=== PATIENT | male | born 1945 | race Caucasian/White ===

== ENCOUNTER 2019-08-17 10:10 | Emergency (ER) | payer OTHER, SELFPAY ==
--- NOTE | 2019-08-17 10:18 | ED.URI ---
HPI - URI/Sore Throat General Chief Complaint: Upper Respiratory Infection Stated Complaint: COUGH Time Seen by Provider: 08/17/19 10:50 Source: patient and RN notes reviewed Mode of arrival: ambulatory Limitations: no limitations History of Present Illness HPI Narrative: 73-year-old male presents with concern for 1 week history of cough, worsening cough and shortness of breath upon exertion. Reports general malaise, denies fever, chills, sweats. Denies chest pain, diaphoresis. Denies taking any [id number] medications for his symptoms. MD elicited complaint: cough Related Data Home Medications Medication Instructions Recorded Confirmed lisinopril-hydrochlorothiazide 1 tablet PO DAILY 08/17/19 08/17/19 Allergies Allergy/AdvReac Type Severity Reaction Status Date / Time No Known Allergies Allergy Verified 08/17/19 10:33 Review of Systems Review of Systems: Narrative: CONSTITUTIONAL: Reports malaise. Denies chills, sweats, or fever. EYES: Denies visual changes, redness, or discharge. ENT: Reports rhinorrhea. Denies congestion, sinus pain, otalgia and sore throat. CARDIOVASCULAR: Denies chest pain, palpitations, or edema. RESPIRATORY: Reports cough and occasional dyspnea with coughing fits. GASTROINTESTINAL: Denies abdominal pain, nausea, vomiting, diarrhea SKIN: Denies rash or itching. MUSCULOSKELETAL: Denies myalgia. NEUROLOGIC: Reports occasional headache. All systems reviewed & are unremarkable except as noted in HPI and below PMFSH Family History Family History (Updated 01/09/16 @ 23:21 by DOCTOR UNKNOWN) Mother Patient's mother is in good health Father Family history of malignant neoplasm Patient's father is Social History Social History Alcohol intake: never Comments At time of signature, agree with nursing past medical, surgical, social and family history. There is no relevant family history pertinent to the presenting complaint Exam Narrative: Exam Narrative: GENERAL: Well-appearing, well-nourished, and in no acute distress. HEAD: Normocephalic EYES: PERRLA, conjunctivae clear ENT: Nares clear, turbinates erythematous, clear discharge. Mucous membranes moist. TM pearly albright with dull light reflex bilaterally; no tragal tenderness. Oropharynx not erythematous without lesions. Tonsils not enlarged and without exudate, no drooling, no hoarseness, no trismus, uvula midline. NECK: Supple. No lymphadenopathy CHEST: Clear to auscultation, breath sounds equal. No wheezing, rhonchi, rales, or stridor. No respiratory distress, speaks in full sentences. Cough noted HEART: Regular rate and rhythm. No murmur heard. SKIN: Warm, dry, no rash. NEURO: Alert and oriented x3. PSYCH: Normal mood and affect Course Course Emergency Course: Patient is aware of diagnosis, understands and agrees to treatment plan. Anticipatory guidance given. Patient agrees to follow-up as directed and is aware of reasons to seek care at the emergency department. Portions of this record may have been created with voice recognition software Vital Signs Vital signs: Vital Signs Temperature 97.8 F 08/17/19 10:25 Pulse Rate 74 08/17/19 10:25 Respiratory Rate 20 08/17/19 10:25 Blood Pressure 146/78 H 08/17/19 10:25 Pulse Oximetry 98 08/17/19 10:25 Temperature 97.8 F 08/17/19 10:25 Pulse Rate 74 08/17/19 10:25 Respiratory Rate 20 08/17/19 10:25 Blood Pressure 146/78 H 08/17/19 10:25 Pulse Oximetry 98 08/17/19 10:25 Reviewed. Patient has current diagnosis of hypertension MDM - URI/Sore Throat MDM Narrative Medical decision making narrative: Differential diagnosis considered: Strep pharyngitis, allergic rhinitis, upper respiratory tract infection, sinusitis, rhinosinusitis, nasopharyngitis. viral pharyngitis, otitis media, otitis externa, pneumonia, bronchitis, viral cough syndrome, viral syndrome, and influenza. Exam findings show no acute concerns or changes; patie
[2019-08-17 10:25] VITALS: BP 146/78; PULSE 74; RESP 20; TEMP 36.6; O2SAT 98
== END 2019-08-17 11:12 | disposition home or self-care (01) ==
PROVIDERS: Emergency Provider Nurse Practitioner; PCP Internal Medicine
DX: R05 Cough (principal); I10 Essential (primary) hypertension; Z96.653 Presence of artificial knee joint, bilateral
CPT/HCPCS: 99213; G0463

== ENCOUNTER 2020-01-22 07:30 | Outpatient (CLI) | payer OTHER, SELFPAY ==
[2020-01-22 07:56] LABS: Hemoglobin A1C 5.4 % (<5.7)
[2020-01-22 07:59] LABS: Anion Gap 7 mmol/L (8-16); Blood Urea Nitrogen 18 mg/dL (9-20); Calcium 8.8 mg/dL (8.4-10.2); Carbon Dioxide 27 mmol/L (22-30); Chloride 102 mmol/L (98-107); Cholesterol 170 mg/dL (0-200); Estimated Glomerular Filt Rate > 60; Glucose 112 mg/dL (75-110); HDL Direct 53 mg/dL; Potassium 4.1 mmol/L (3.4-5.0); Sodium 136 mmol/L (137-145); Triglycerides 103 mg/dL (<150)
[2020-01-22 08:10] LABS: LDL Cholesterol Direct 99 mg/dL
[2020-01-22 08:29] LABS: Prostate Specific Antigen 1.8 ng/mL (< OR = 4.0)
== END 2020-01-22 07:31 | disposition home or self-care (01) ==
PROVIDERS: PCP Internal Medicine; Visit Provider Internal Medicine
DX: R73.03 Prediabetes (principal); Z12.5 Encounter for screening for malignant neoplasm of prostate; E78.5 Hyperlipidemia, unspecified; I10 Essential (primary) hypertension
CPT/HCPCS: 36415; 80048; 80061; 83036; 84153; G0103

== ENCOUNTER 2021-01-21 07:13 | Outpatient (CLI) | payer OTHER, SELFPAY ==
[2021-01-21 09:19] LABS: Anion Gap 7 mmol/L (8-16); Blood Urea Nitrogen 16 mg/dL (9-20); Calcium 9.1 mg/dL (8.4-10.2); Carbon Dioxide 26 mmol/L (22-30); Chloride 106 mmol/L (98-107); Cholesterol 189 mg/dL (0-200); Estimated Glomerular Filt Rate > 60; Glucose 118 mg/dL (65-110); HDL Direct 47 mg/dL; Sodium 139 mmol/L (137-145); Triglycerides 97 mg/dL (<150)
[2021-01-21 09:21] LABS: Hemoglobin A1C 5.9 % (<5.7)
[2021-01-21 09:32] LABS: LDL Cholesterol Direct 103 mg/dL
[2021-01-21 09:52] LABS: Prostate Specific Antigen 1.6 ng/mL (< OR = 4.0)
== END 2021-01-21 07:14 | disposition home or self-care (01) ==
PROVIDERS: PCP Internal Medicine; Visit Provider Internal Medicine
DX: E78.5 Hyperlipidemia, unspecified (principal); I10 Essential (primary) hypertension; R73.03 Prediabetes; Z12.5 Encounter for screening for malignant neoplasm of prostate
CPT/HCPCS: 36415; 80048; 80061; 83036; 84153; G0103

== ENCOUNTER 2022-01-21 08:44 | Outpatient (CLI) | payer OTHER, SELFPAY ==
[2022-01-21 10:23] LABS: Alanine Aminotransferase 22 U/L (6-50); Albumin Level 4.4 g/dL (3.5-5.1); Alkaline Phosphatase 62 U/L (38-126); Anion Gap 11 mmol/L (8-16); Aspartate Amino Transferase 24 U/L (17-59); Bilirubin,Total 0.5 mg/dL (0.2-1.3); Blood Urea Nitrogen 19 mg/dL (9-20); Calcium 9.1 mg/dL (8.4-10.2); Carbon Dioxide 26 mmol/L (22-30); Chloride 99 mmol/L (98-107); Cholesterol 181 mg/dL (0-200); Estimated Glomerular Filt Rate > 60; Glucose 114 mg/dL (65-110); HDL Direct 52 mg/dL; Potassium 4.3 mmol/L (3.4-5.0); Sodium 136 mmol/L (137-145); Triglycerides 120 mg/dL (<150)
[2022-01-21 10:34] LABS: LDL Cholesterol Direct 102 mg/dL
[2022-01-21 10:49] LABS: Prostate Specific Antigen 1.5 ng/mL (< OR = 4.0)
[2022-01-21 11:02] LABS: Hemoglobin A1C 6.1 % (<5.7)
== END 2022-01-21 08:45 | disposition home or self-care (01) ==
PROVIDERS: PCP Internal Medicine; Visit Provider Internal Medicine
DX: R73.03 Prediabetes (principal); I10 Essential (primary) hypertension; Z12.5 Encounter for screening for malignant neoplasm of prostate; E78.5 Hyperlipidemia, unspecified
CPT/HCPCS: 36415; 80053; 80061; 83036; 84153; G0103

== ENCOUNTER 2022-10-25 07:30 | Outpatient (CLI) | payer OTHER, SELFPAY ==
--- NOTE | ~2022-10-25 | US_ITS ---
EXAMINATION: US aorta DATE: 10/25/2022 08:01 INDICATION: Personal history of nicotine dependence. TECHNIQUE: Grayscale, color Doppler, and pulsed Doppler images of the aorta and common iliac arteries were obtained. COMPARISON: None. FINDINGS: The aorta demonstrates a fusiform suprarenal aneurysm measuring 3.1 cm. The right common iliac artery measures 1.5 cm. The left common iliac artery measures 1.6 cm. There is diffuse hepatic steatosis. IMPRESSION: 1. 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 2. Diffuse hepatic steatosis. Reviewed, dictated and finalized at location A.
== END 2022-10-25 07:31 | disposition home or self-care (01) ==
PROVIDERS: PCP Family Medicine; Visit Provider Family Medicine
DX: Z87.891 Personal history of nicotine dependence (principal); K76.0 Fatty (change of) liver, not elsewhere classified; I71.43 Infrarenal abdominal aortic aneurysm, without rupture
CPT/HCPCS: 76775

== ENCOUNTER 2022-12-13 09:17 | Emergency (ER) | payer OTHER, SELFPAY ==
[2022-12-13 09:23] VITALS: BP 133/73; PULSE 85; RESP 16; TEMP 36.7; O2SAT 98
--- NOTE | 2022-12-13 09:26 | ED.GENADULT ---
HPI - General Adult General Chief complaint: Upper Respiratory Infection Stated complaint: COUGH/SORE THROAT/HEADACHE/EYE REDNESS Time Seen by Provider: 12/13/22 09:39 Source: patient and RN notes reviewed Mode of arrival: ambulatory Limitations: no limitations History of Present Illness HPI narrative: 77-year-old male presents with concern for right eye redness, discharge, swelling, purulent drainage. Reports overnight it was crusted shut. Reports the symptoms started yesterday. Reports for the last 4-5 days he has had cough, nasal congestion, sinus pressure, ear pain. He denies known sick contacts. He has not taken any medications for his symptoms. MD complaint: Cough Related Data Home Medications Medication Instructions Recorded Confirmed docusate sodium 100 mg capsule 100 mg PO DAILY 02/05/22 02/05/22 (Dulcolax Stool Softener (docusate)) omega-3 fatty acids-fish oil 340 1 cap PO DAILY 02/05/22 02/05/22 mg-1,000 mg capsule (Fish Oil) omeprazole 20 mg capsule,delayed 20 mg PO DAILY 02/05/22 02/05/22 release sertraline 50 mg tablet 50 mg PO DAILY 02/05/22 02/05/22 metformin 500 mg tablet 500 mg PO DAILY 10/12/22 Allergies Allergy/AdvReac Type Severity Reaction Status Date / Time No Known Allergies Allergy Verified 10/12/22 08:49 Review of Systems Review of Systems: CONSTITUTIONAL: Denies malaise, chills, sweats, or fever. EYES: Denies visual changes, redness, or discharge. ENT: Reports rhinorrhea, congestion, sinus pain, otalgia CARDIOVASCULAR: Denies chest pain, palpitations, or edema. RESPIRATORY: Reports cough. Denies dyspnea. GASTROINTESTINAL: Denies abdominal pain, nausea, vomiting, diarrhea SKIN: Denies rash or itching. MUSCULOSKELETAL: Denies myalgia. NEUROLOGIC: Denies headache. All systems reviewed & are unremarkable except as noted in HPI and below PMFSH Past Medical History Medical History Bone spur of right foot PTSD (post-traumatic stress disorder) Family History Family History Mother Patient's mother is in good health Father Family history of malignant neoplasm Patient's father is Social History Social History (Reviewed 10/12/22 @ 08:47 by Jeimy Maddox [facility]) Smoking status: Never smoker Alcohol intake: never Comments At time of signature, agree with nursing past medical, surgical, social and family history. There is no relevant family history pertinent to the presenting complaint Exam Narrative: GENERAL: Nontoxic and in no acute distress. HEAD: Normocephalic EYES: PERRLA. Right conjunctiva and sclera injected, mild upper and lower lid edema, yellow drainage noted. ENT: Nares clear, turbinates edematous and erythematous. Mucous membranes moist. Right tM pearly albright with dull light reflex, left TM erythematous and bulging; no tragal tenderness. Oropharynx not erythematous without lesions. Tonsils not enlarged and without exudate, no drooling, no hoarseness, no trismus, uvula midline. NECK: Supple. No lymphadenopathy CHEST: Clear to auscultation, breath sounds equal. No wheezing, rhonchi, rales, or stridor. No respiratory distress, speaks in full sentences. Cough noted HEART: Regular rate and rhythm. No murmur heard. SKIN: Warm, dry, no rash. NEURO: Alert and oriented x3. PSYCH: Normal mood and affect Course Course Emergency Course: Patient is aware of diagnosis, understands and agrees to treatment plan. Anticipatory guidance given. Patient agrees to follow-up as directed and is aware of reasons to seek care at the emergency department. Portions of this record may have been created with voice recognition software Level of Care: Express Care Visit Vital Signs Vital signs: Vital Signs Temperature 98.1 F 12/13/22 09:23 Pulse Rate 85 12/13/22 09:23 Respiratory Rate 16 12/13/22 09:23 Blood Pressure 133/73
== END 2022-12-13 09:53 | disposition home or self-care (01) ==
PROVIDERS: Emergency Provider Nurse Practitioner; PCP Family Medicine
DX: R05.9 Cough, unspecified (principal); H66.002 Acute suppurative otitis media without spontaneous rupture of ear drum, left ear; H10.31 Unspecified acute conjunctivitis, right eye; F43.10 Post-traumatic stress disorder, unspecified
CPT/HCPCS: 99213; G0463

== ENCOUNTER 2023-01-07 07:21 | Outpatient (CLI) | payer OTHER, SELFPAY ==
--- NOTE | ~2023-01-07 | XR_ITS ---
Clinical Indication: Cough PA and lateral views of the chest: Comparison: 11/01/2013 Findings: The lungs are clear, without evidence of focal consolidation or pleural effusion. Cardiome diastinal silhouette is within normal limits. Bones and soft tissues are unremarkable. Impression: Normal chest. Reviewed, dictated and finalized at location . Impression: Normal chest.
== END 2023-01-07 07:22 | disposition home or self-care (01) ==
PROVIDERS: PCP Family Medicine; Visit Provider Nurse Practitioner Family
DX: R05.9 Cough, unspecified (principal)
CPT/HCPCS: 71046

== ENCOUNTER 2023-09-09 09:12 | Emergency (ER) | payer MEDICARE, SELFPAY ==
--- NOTE | 2023-09-09 09:17 | ED.URI ---
HPI - URI/Sore Throat General Chief Complaint: Upper Respiratory Infection Stated Complaint: sore throat,runny nose,PAGAN,cough Time Seen by Provider: 09/09/23 09:16 Source: patient, RN notes reviewed and old records reviewed Mode of arrival: ambulatory Limitations: no limitations History of Present Illness HPI Narrative: 77-year-old male to Express Care with complaint of runny nose, cough, sore throat, headache for 3 days. Patient has treated at home with Coricidin and Advil with some relief. Patient denies fever, chest pain, shortness of breath. Patient able to tolerate fluids by mouth. Related Data Home Medications Medication Instructions Recorded Confirmed omeprazole 20 mg capsule,delayed 20 mg PO DAILY 02/05/22 09/09/23 release sertraline 50 mg tablet 50 mg PO DAILY 02/05/22 09/09/23 metformin 500 mg tablet 500 mg PO DAILY 10/12/22 09/09/23 Allergies Allergy/AdvReac Type Severity Reaction Status Date / Time No Known Allergies Allergy Verified 09/09/23 09:27 Review of Systems Review of Systems: All systems reviewed & are unremarkable except as noted in HPI and below Constitutional: Constitutional: Reports as per HPI, Denies fever(s) and Reports headache(s) Eyes: Eyes: Reports no additional eye complaints ENT: Reports as per HPI, Reports nasal discharge (clear per pt) and Reports sore throat Cardiovascular: Cardiovascular: Reports as per HPI, Denies chest pain and Denies dyspnea Respiratory: Respiratory: Reports as per HPI, Reports cough and Denies dyspnea Musculoskeletal: Musculoskeletal: Reports no additional musculoskeletal complaints Neurologic: Reports system reviewed and no additional complaints, except as documented Psychiatric: Psychiatric: Reports no additional psychiatric complaints [facility] Past Medical History Medical History Bone spur of right foot PTSD (post-traumatic stress disorder) Family History Family History Mother Patient's mother is in good health Father Family history of malignant neoplasm Patient's father is Social History Social History Smoking status: Never smoker Alcohol intake: never Lack of Transportation: No Lack of Food: Never True Current Housing: I Have Housing Concerned About Future Housing: No Difficulty Paying Gas/Electric Bills: No Difficulty Paying for Meds: No Currently Unemployed: No Education: Master's Degree or Higher Difficulty w/ Childcare or Family Care: No Comments At the time of my signature, I reviewed and agree with the nursing past medical, surgical, social, and family history. There is no relevant family history pertinent to the patient complaint. Exam Const: General: cooperative, comfortable, no acute distress, alert, tired appearing and well nourished Nutritional Appearance: well nourished Orientation/consciousness: patient oriented x3 Limitations: no limitations HENMT: Head: normal to inspection Ears: external ears normal, TM abnormal with fluid behind the TM on the left and obstructed by cerumen on the right and unable to visualize TM on the right Face/Nose/Sinus: Normal external nose present, Normal nares present, normal facial exam, No erythema and No edema Face and sinus: normal facial exam, no erythema and no edema Mouth: Yes Normal oral and palatal mucosa present Throat: posterior oropharynx abnormal erythema and postnasal drainage Eyes: General: appearance normal, both eyes and all related structures Neck: Neck: normal visual inspection, full ROM and no meningeal signs Lymphatic: no lymphadenopathy noted and no lymphedema noted Chest: Chest palpation & inspection: normal inspection of the chest Resp: Effort & Inspection: normal respiratory effort and able to speak in complete sentences Auscultation:
[2023-09-09 09:33] VITALS: BP 148/74; PULSE 90; RESP 16; TEMP 36.4; O2SAT 98
== END 2023-09-09 10:10 | disposition home or self-care (01) ==
PROVIDERS: Emergency Provider Nurse Practitioner Family; PCP Family Medicine
DX: H66.92 Otitis media, unspecified, left ear (principal); H61.23 Impacted cerumen, bilateral; Z20.822 Contact with and (suspected) exposure to COVID-19
CPT/HCPCS: 69210; 87426; 87804; 99213; G0463

== ENCOUNTER 2023-09-20 08:13 | Emergency (ER) | payer MEDICARE, SELFPAY ==
[2023-09-20 08:21] VITALS: BP 110/94; PULSE 67; RESP 16; TEMP 36.5; O2SAT 98
--- NOTE | 2023-09-20 08:24 | ED.URI ---
HPI - URI/Sore Throat General Chief Complaint: Upper Respiratory Infection Stated Complaint: Cough Time Seen by Provider: 09/20/23 08:24 Source: patient, RN notes reviewed and old records reviewed Mode of arrival: ambulatory Limitations: no limitations History of Present Illness HPI Narrative: 77 year old male presents to [facility] care with complaints of cough which continues to linger after completion of Amoxicillin which he received on 09/09/2023 for ear infection. Patient reports that he has been taking Robitussin for his cough.Patient reports no fevers, chills or sweats or any body aches, admits to some nasal drainage. Patient reports no noted wheezing, states some shortness of breath with exertion with no tachypnea or retractions noted SAO2 98% on room air. MD elicited complaint: cough Pertinent past history: other (ear infection with antibiotics on 09/09/2023) Onset (ago): week(s) (1.5 weeks cough) Pain scale (0-10): 2 Description of mucous: clear Able to tolerate fluids by mouth: Yes Treatments prior to arrival: antibiotics (completed) and other (Robitussin) Related Data Home Medications Medication Instructions Recorded Confirmed omeprazole 20 mg capsule,delayed 20 mg PO DAILY 02/05/22 09/09/23 release sertraline 50 mg tablet 50 mg PO DAILY 02/05/22 09/09/23 metformin 500 mg tablet 500 mg PO DAILY 10/12/22 09/09/23 Allergies Allergy/AdvReac Type Severity Reaction Status Date / Time No Known Allergies Allergy Verified 09/20/23 08:28 Review of Systems Review of Systems: CONSTITUTIONAL: Denies malaise, chills, sweats, or fever. EYES: Denies visual changes, redness, or discharge. ENT: Reports rhinorrhea, congestion,no sinus pain,no otalgia and no sore throat. CARDIOVASCULAR: Denies chest pain, palpitations, or edema. RESPIRATORY: Reports cough.? Reports some dyspnea with exertion. GASTROINTESTINAL: Denies abdominal pain, nausea, vomiting, diarrhea SKIN: Denies rash or itching. MUSCULOSKELETAL: Denies myalgia. NEUROLOGIC: Denies headache. All systems reviewed & are unremarkable except as noted in HPI and below PMFSH Past Medical History Medical History (Updated 09/21/23 @ 15:08 by Heidy Pyle NP) Bone spur of right foot PTSD (post-traumatic stress disorder) Surgical History Surgical History (Updated 09/20/23 @ 08:46 by Heidy Pyle NP) History of bilateral knee replacement Hx of cholecystectomy Hx of right inguinal hernia repair Family History Family History Mother Patient's mother is in good health Father Family history of malignant neoplasm Patient's father is Social History Social History Smoking status: Never smoker Alcohol intake: never Lack of Transportation: No Lack of Food: Never True Current Housing: I Have Housing Concerned About Future Housing: No Difficulty Paying Gas/Electric Bills: No Difficulty Paying for Meds: No Currently Unemployed: No Education: Master's Degree or Higher Difficulty w/ Childcare or Family Care: No Comments At time of signature, agree with nursing past medical, surgical, social and family history. There is no relevant family history pertinent to the presenting complaint Exam Narrative: GENERAL: Well-appearing, well-nourished, and in no acute distress. HEAD: Normocephalic EYES: PERRLA, conjunctivae clear ENT: Nares clear, turbinates edematous and erythematous, clear discharge. Mucous membranes moist. TM pearly albright with dull light reflex bilaterally; no tragal tenderness. Oropharynx erythematous without lesions. Tonsils not enlarged and without exudate, no drooling, no hoarseness, no trismus, uvula midline.post nasal drainage present. NECK: Supple. No lymphadenopathy CHEST: Clear to auscultation, breath sounds equal. No wheezing, rhonchi, rales, or stridor. No respi
== END 2023-09-20 08:53 | disposition home or self-care (01) ==
PROVIDERS: Emergency Provider Registered Nurse; PCP Family Medicine
DX: J31.0 Chronic rhinitis (principal); R05.9 Cough, unspecified; Z96.653 Presence of artificial knee joint, bilateral
CPT/HCPCS: 99213; G0463

== ENCOUNTER 2024-01-25 06:31 | Day surgery (SDC) | payer OTHER, SELFPAY ==
[2024-01-10 05:58] VITALS: BMI 34.4
[2024-01-18 08:24] VITALS: BMI 27.3
[2024-01-25 07:51] VITALS: BP 120/71; PULSE 72; RESP 16; TEMP 36.6; O2SAT 100
[2024-01-25 07:55] VITALS: BMI 27.2
[2024-01-25] MEDS: LACTATED RINGERS 1,000 ML 150 ML IV CONT (08:06)
[2024-01-25 08:08] LABS: Glucose Point of Care 89 mg/dl (65-105)
--- NOTE | 2024-01-25 08:21 | WPDANESEPPF ---
Anes - Initial Pre Proc Eval Procedure: Operation Date: 01/25/24 09:00 Proposed Procedures p Diagnostic Colonoscopy - Bakari Flowers MD Date/Time: 01/25/24 08:21 Surgeon: Bakari Flowers MD Pre Op Diagnosis: Personal HX of colon polyps Patient Data Age: 78 Gender: M Height: 1.78 m Weight: 86.1 kg Last Vital Signs Temp 36.6 C 01/25/24 07:51 Pulse 72 01/25/24 07:51 Resp 16 01/25/24 07:51 BP 120/71 01/25/24 07:51 Pulse Ox 100 01/25/24 07:51 O2 Del Method Room Air 01/25/24 07:51 Allergies Allergy/AdvReac Type Severity Reaction Status Date / Time No Known Allergies Allergy Verified 01/25/24 07:49 Home Medications Medication Instructions Recorded Confirmed Type omeprazole 20 mg capsule,delayed 20 mg PO DAILY 02/05/22 01/25/24 History release sertraline 50 mg tablet 100 mg PO DAILY 02/05/22 01/25/24 History metformin 500 mg tablet 250 mg PO DAILY 10/12/22 01/25/24 History atorvastatin 10 mg tablet 10 mg PO DAILY #90 tabs 01/25/23 01/25/24 Rx lisinopril 20 1 tablet PO BID 10/18/23 01/25/24 History mg-hydrochlorothiazide 12.5 mg tablet tirzepatide 7.5 mg/0.5 mL 7.5 mg (0.5 mL) subcut WEEKLY #2 mL 12/21/23 01/25/24 Rx subcutaneous pen injector (Mounjaro) Laboratory Tests 01/25/24 08:01 POC Capillary Glucose 89 mg/dl (65-105) Patient hx anesthesia problems: none Family hx anesthesia problems: none Results Review: All pre-operative results and documents have been reviewed as part of the pre-operative evaluation. [facility] Past Medical History Medical History (Updated 01/25/24 @ 08:22 by Angelo Amaya MD) Bone spur of right foot Essential (primary) hypertension Prediabetes PTSD (post-traumatic stress disorder) Surgical History Surgical History History of bilateral knee replacement Hx of cholecystectomy Hx of right inguinal hernia repair Family History Family History Mother Patient's mother is in good health Father Family history of malignant neoplasm Patient's father is Social History Social History Smoking status: Former smoker Tobacco type: cigarettes Alcohol intake: never Substance use type: does not use Lack of Transportation: No Lack of Food: Never True Current Housing: I Have Housing Concerned About Future Housing: No Difficulty Paying Gas/Electric Bills: No Difficulty Paying for Meds: No Currently Unemployed: No Education: Master's Degree or Higher Difficulty w/ Childcare or Family Care: No Living arrangements: with family Spiritual care concerns: No Anes - Eval Final PreProcedure Day of Procedure 01/25/24 08:21 Patient weight: overweight Heart: regular rate and rhythm Lungs: clear to auscultation Airway: Mallampati scale class II and other (edentulous) Neurological: alert and oriented Last oral intake: >/= 8 hours ASA classification: II Emergent: no Anesthetic plan: proceed Anesthesia type and monitoring: general GIVS and standard monitoring Results Review: All pre-operative results and documents have been reviewed as part of the pre-operative evaluation. Informed Consent: The patient's anesthetic plan and its attendant risks and benefits were discussed with the patient/family/POA. Questions were solicited and answers provided to the satisfaction of the patient/family/POA.
--- NOTE | 2024-01-25 08:35 | PM.HPGS ---
History of Present Illness History of Present Illness Consent: Risks, benefits, and alternatives have been discussed and questions answered. Patient agrees to proceed with procedure. Chief complaint: Personal HX of colon polyps Narrative: Rufino Hassan is a 78 year old male presents for screening colonoscopy. Patient does have a history of colon polyps in the past. Patient's current weight appetite and bowel movements are normal. Patient denies abdominal pain. He has had no bleeding. Family history noncontributory. Review of Systems Review of Systems: All systems reviewed & are unremarkable except as noted in HPI and below PMFSH Past Medical History Medical History (Updated 01/25/24 @ 08:37 by Bakari Flowers MD) Bone spur of right foot Essential (primary) hypertension Prediabetes PTSD (post-traumatic stress disorder) Surgical History Surgical History History of bilateral knee replacement Hx of cholecystectomy Hx of right inguinal hernia repair Family History Family History Mother Patient's mother is in good health Father Family history of malignant neoplasm Patient's father is Social History Social History Smoking status: Former smoker Tobacco type: cigarettes Alcohol intake: never Substance use type: does not use Lack of Transportation: No Lack of Food: Never True Current Housing: I Have Housing Concerned About Future Housing: No Difficulty Paying Gas/Electric Bills: No Difficulty Paying for Meds: No Currently Unemployed: No Education: Master's Degree or Higher Difficulty w/ Childcare or Family Care: No Living arrangements: with family Spiritual care concerns: No Meds Home Medications and Allergies Home Medications Medication Instructions Recorded Confirmed Type omeprazole 20 mg capsule,delayed 20 mg PO DAILY 02/05/22 01/25/24 History release sertraline 50 mg tablet 100 mg PO DAILY 02/05/22 01/25/24 History metformin 500 mg tablet 250 mg PO DAILY 10/12/22 01/25/24 History atorvastatin 10 mg tablet 10 mg PO DAILY #90 tabs 01/25/23 01/25/24 Rx lisinopril 20 1 tablet PO BID 10/18/23 01/25/24 History mg-hydrochlorothiazide 12.5 mg tablet tirzepatide 7.5 mg/0.5 mL 7.5 mg (0.5 mL) subcut WEEKLY #2 mL 12/21/23 01/25/24 Rx subcutaneous pen injector (Mounjaro) Allergies Allergy/AdvReac Type Severity Reaction Status Date / Time No Known Allergies Allergy Verified 01/25/24 07:49 Vital Signs Vital Signs - 24 hr 01/25/24 07:51 Temperature 97.8 F Pulse Rate 72 Respiratory Rate 16 Blood Pressure 120/71 Pulse Oximetry 100 Oxygen Delivery Room Air Exam Narrative: Physical exam reveals patient to be alert. Vital signs stable. HEENT exam is unremarkable. Patient is anicteric. Lungs are clear to auscultation and to percussion. Heart is without murmur or extra sounds. Abdomen bowel sounds are present soft nontender with no or external rectal exam is normal. Assessment and Plan Assessment and plan (1) History of colon polyps: Code(s): Z86.010 - Personal history of colonic polyps Status: Acute Assessment and Plan: The patient has a history of colon polyp in the past. Most recently 8 years ago. Surveillance colonoscopy recommended at this time. Further recommendations may be given after endoscopy.
[2024-01-25 09:08] VITALS: BP 87/56; PULSE 69; RESP 15; O2SAT 99
[2024-01-25 09:18] VITALS: BP 102/61; PULSE 66; RESP 16; O2SAT 98
--- NOTE | 2024-01-25 09:18 | WPDANESPN ---
Anes - Prog Note Post-Op Date/Time: 01/25/24 09:18 Cardiovascular status: normal Respiratory status: normal Airway patency: baseline Mental status: baseline Post-Op hydration status: normal Vital Signs: Last Vital Signs Temp 36.6 C 01/25/24 07:51 Pulse 72 01/25/24 07:51 Resp 16 01/25/24 07:51 BP 120/71 01/25/24 07:51 Pulse Ox 100 01/25/24 07:51 O2 Del Method Room Air 01/25/24 07:51 Pain Score (VAS): 0/10 I/O: Intake & Output 01/24/24 01/25/24 01/25/24 23:59 07:59 15:59 Intake Total 600 Balance 600 01/25/24 08:01 POC Capillary Glucose 89 Patient Feedback: Patient satisfied with anesthetic care.
[2024-01-25 09:28] VITALS: BP 116/65; PULSE 67; RESP 18; O2SAT 99
== END 2024-01-25 09:55 | disposition home or self-care (01) ==
PROVIDERS: PCP Family Medicine; Visit Provider Internal Medicine Gastroenterology
PROC: 0DJD8ZZ Inspection of Lower Intestinal Tract, Via Natural or Artificial Opening Endoscopic (ICD-10-PCS; CPT 45378; principal; 2024-01-25 09:00)
DX: Z86.010 Personal history of colon polyps (principal); D12.3 Benign neoplasm of transverse colon; K64.8 Other hemorrhoids; D37.4 Neoplasm of uncertain behavior of colon
CPT/HCPCS: 45385; 45380

== ENCOUNTER 2024-01-26 07:00 | Outpatient (NON) | payer OTHER, SELFPAY | END 2024-01-26 07:30 | disposition home or self-care (01) | LOC: ANHLAB 02-02 13:05 | PROVIDERS: PCP Family Medicine; Visit Provider Internal Medicine Gastroenterology | DX: Z86.010 Personal history of colon polyps (principal) | CPT/HCPCS: 88305 ==

== ENCOUNTER 2024-03-13 09:48 | Outpatient (CLI) | payer MEDICARE, SELFPAY ==
--- NOTE | 2024-03-13 11:00 | ECG_ITS ---
Test Date: 2024-03-13 11:14:11 Measurements Intervals [place] Rate: 66 P: -53 TN: 218 QRS: -36 QRSD: 102 T: -18 QT: 386 QTc: 407 Interpretive Statements SINUS RHYTHM WITH FIRST DEGREE AV BLOCK MARKED LEFT AXIS DEVIATION [QRS AXIS < -30] WARNING: DATA QUALITY MAY AFFECT INTERPRETATION No previous ECG available for comparison Electronically Signed On 03-13-2024 13:18:56 CDT by Manoj Marks M.D.
[2024-03-13 11:49] LABS: Hematocrit 43.1 % (42.0-52.0)
[2024-03-13 12:04] LABS: Anion Gap 7 mmol/L (4-12); Blood Urea Nitrogen 20 mg/dL (9-20); Calcium 9.4 mg/dL (8.4-10.2); Carbon Dioxide 31 mmol/L (22-30); Chloride 99 mmol/L (98-107); Estimated Glomerular Filt Rate > 60; Glucose 93 mg/dL (65-110); Potassium 3.9 mmol/L (3.4-5.0); Sodium 137 mmol/L (137-145)
== END 2024-03-13 09:49 | disposition home or self-care (01) ==
PROVIDERS: Anesthesiology; PCP Family Medicine; Visit Provider Surgery
DX: Z01.818 Encounter for other preprocedural examination (principal); D48.9 Neoplasm of uncertain behavior, unspecified; I10 Essential (primary) hypertension; E11.9 Type 2 diabetes mellitus without complications; I44.0 Atrioventricular block, first degree
CPT/HCPCS: 36415; 80048; 85014; 85018; 93005

== ENCOUNTER 2024-03-30 16:44 | Inpatient (IN) | payer MEDICARE, SELFPAY ==
[2024-03-13 10:20] VITALS: BP 110/59; PULSE 67; RESP 16; TEMP 36.7; O2SAT 99; BMI 26.6
--- NOTE | 2024-03-13 10:38 | PC.NURSE ---
Report to the Outpatient Waiting Room, entrance under the green pavilion located off [facility], at time __6:00AM on date ___03/30/24____. Planned Procedure Time: ___7:30AM .? Time changes happen often and if your time is changed the preop area will call you the afternoon before. - You and your visitor will be asked to self-screen and do not enter if you have any COVID symptoms. Please call surgeon if you need to reschedule. - A mask is optional within the hospital at this time. Patients may have clear liquids (water, carbonated beverages, clear teas, apple juice) until 3 hours prior to surgery with a maximum of 20 ounces. Take only the following medications with a SIP of water on the morning of surgery: ____SERTRALINE DO NOT STOP ANY OF YOUR OTHER PRESCRIPTION MEDICATIONS PRIOR TO SURGERY EXCEPT THE FOLLOWING Medications to discontinue per physician ____HOLD ALL VITAMINS/SUPPLEMENTS 3 DAYS PRE-OP PER ANESTHESIA Date to take last dose 03/26/24 Please no make-up, nail malay, hairspray, perfume, deodorant, or body powder the day of surgery.? No jewelry (including any body piercings) or valuables the day of surgery, leave them at home.? Please take a shower or bath the night before, or the morning of, surgery with an antibacterial soap.? Wear comfortable, loose fitting clothing.? - Jewelry must be removed prior to entering the operating room.? Rings and piercings that are not removed may be cut off. - The hospital will not accept responsibility for valuables.? - Please leave all valuables, including medications, at home the day of surgery. If you are going home after surgery, a licensed corrugated fastener driver must drive you home.? - NO public transportation without another adult if you receive anesthesia. - We recommend that an adult stay with you for 24 hours following discharge. - We also recommend that you do not drive, make important decision, drink alcoholic beverages, or take any drugs that were not prescribed by your health care provider for at least 24 hours after your discharge time. Follow any additional instructions given to you from your surgeon. ENSURE BUNDLE PRE-OP ANTIBIOTICS BOWEL INSTRUCTIONS HIBICLENS SHOWER DAY BEFORE AND DAY OF SURGERY Telephone instructions given to ____PATIENT & WIFE and asked if any additional questions and then verbalized understanding. Patient advised to call surgeon office or pre surgery nurse liaison [phone] if any additional questions.
--- NOTE | 2024-03-29 19:19 | WPDANESEPPF ---
Anes - Initial Pre Proc Eval Procedure: Operation Date: 03/30/24 09:00 Proposed Procedures p Robotic Assisted Laparoscopic Right Hemicolectomy, Possible Open - Woo Chu MD Date/Time: 03/29/24 19:19 Surgeon: Woo Chu MD Pre Op Diagnosis: cecal villous adenoma Patient Data Age: 78 Gender: M Height: 1.78 m Weight: 84.4 kg Last Vital Signs Temp 36.7 C 03/13/24 10:20 Pulse 67 03/13/24 10:20 Resp 16 03/13/24 10:20 BP 110/59 L 03/13/24 10:20 Pulse Ox 99 03/13/24 10:20 O2 Del Method Room Air 03/13/24 10:20 Allergies Allergy/AdvReac Type Severity Reaction Status Date / Time No Known Allergies Allergy Verified 03/13/24 10:04 Home Medications Medication Instructions Recorded Confirmed Type omeprazole 20 mg capsule,delayed 20 mg PO DAILY 02/05/22 03/13/24 History release metformin 500 mg tablet 250 mg PO QAM 10/12/22 03/13/24 History lisinopril 20 2 tablet PO QAM 10/18/23 03/13/24 History mg-hydrochlorothiazide 12.5 mg tablet ciprofloxacin HCl 500 mg tablet 500 mg PO .COMPLEX #1 tablet 02/01/24 03/13/24 Rx metronidazole 500 mg tablet 500 mg PO .COMPLEX #3 tabs 02/01/24 03/13/24 Rx tirzepatide 12.5 mg/0.5 mL 12.5 mg (0.5 mL) subcut WEEKLY #2 02/20/24 03/13/24 Rx subcutaneous pen injector mL (Mounjaro) atorvastatin 20 mg tablet 20 mg PO DAILY 03/13/24 03/13/24 History docusate sodium 100 mg capsule 200 mg PO DAILY 03/13/24 03/13/24 History multivitamin 1 tablet PO DAILY 03/13/24 03/13/24 History sertraline 100 mg tablet 100 mg PO QAM 03/13/24 03/13/24 History tirzepatide 15 mg/0.5 mL 15 mg (0.5 mL) subcut WEEKLY #2 mL 03/21/24 Rx subcutaneous pen injector (Mounjaro) Results Review: All pre-operative results and documents have been reviewed as part of the pre-operative evaluation. [facility], [facility] Past Medical History Medical History Bone spur of right foot Essential (primary) hypertension Prediabetes PTSD (post-traumatic stress disorder) Surgical History Surgical History History of bilateral knee replacement Hx of cholecystectomy Hx of right inguinal hernia repair Family History Family History Mother Patient's mother is in good health Father Family history of malignant neoplasm Patient's father is Social History Social History Smoking packs per day: 0.02 Smoking cigarettes per day: 0.4 Years smoked: 10 Smoking pack-years: 0.20 Smoking status: Former smoker Tobacco type: cigarettes Smoking end date: 12/11/84 Alcohol intake: never Alcohol use details: DRANK HEAVILY IN HIS 'S, BINGE DRINKER Substance use type: does not use Lack of Transportation: No Lack of Food: Never True Current Housing: I Have Housing Concerned About Future Housing: No Difficulty Paying Gas/Electric Bills: No Difficulty Paying for Meds: No Currently Unemployed: No Education: Master's Degree or Higher Difficulty w/ Childcare or Family Care: No Living arrangements: with family Additional living arrangements comments: Spiritual care concerns: No Anes - Eval Final PreProcedure Day of Procedure 03/29/24 19:19 Results Review: All pre-operative results and documents have been reviewed as part of the pre-operative evaluation. Informed Consent: The patient's anesthetic plan and its attendant risks and benefits were discussed with the patient/family/POA. Questions were solicited and answers provided to the satisfaction of the patient/family/POA.
[2024-03-30] VITALS (13 sets, daily range): BP systolic 110–133; BP diastolic 53–74; PULSE 64–105; RESP 14–26; TEMP 36.3–36.8; O2SAT 93–100
[2024-03-30] MEDS: LACTATED RINGERS 1,000 ML 30 ML IV CONT ×2 (08:00→15:45)
[2024-03-30] MEDS: ACETAMINOPHEN 500 MG TABLET 1000 MG PO (08:22)
[2024-03-30] MEDS: KETOROLAC 15 MG/ML VIAL (*BKC) IV PUSH (08:24)
[2024-03-30] MEDS: ALVIMOPAN 12 MG CAPSULE PO ×2 (08:29→20:42)
[2024-03-30 08:38] LABS: Glucose Point of Care 81 mg/dl (65-105)
--- NOTE | 2024-03-30 08:41 | PM.IMHP ---
H&P: HPI History of Present Illness Date/Time: 03/30/24 08:41 Chief Complaint: Right colon villous adenoma. Narrative: Rufino is a 78 y/o male who presents to the office at the request of Bakari Flowers MD to discuss a villous tumor located at the appendiceal orifice that was discovered during a colonoscopy performed on 01/25/24. The protruding villous mass was observed on the cecum. Multiple biopsies taken. Pathology showed fragments of villous adenoma, no high-grade dysplasia. Review of Systems Review of Systems: The remainder of the review of systems to include constitutional, HEENT, cardiovascular, respiratory, GI, , integumentary, musculoskeletal, endocrine, immunologic, hematologic, psychiatric, and neurologic are all negative except for which is mentioned above in the HPI. [facility] Past Medical History Medical History Bone spur of right foot Essential (primary) hypertension Prediabetes PTSD (post-traumatic stress disorder) Surgical History Surgical History History of bilateral knee replacement Hx of cholecystectomy Hx of right inguinal hernia repair Family History Family History Mother Patient's mother is in good health Father Family history of malignant neoplasm Patient's father is Social History Social History Smoking packs per day: 0.02 Smoking cigarettes per day: 0.4 Years smoked: 10 Smoking pack-years: 0.20 Smoking status: Former smoker Tobacco type: cigarettes Smoking end date: 12/11/84 Alcohol intake: never Alcohol use details: DRANK HEAVILY IN HIS 20/30'S, BINGE DRINKER Substance use type: does not use Lack of Transportation: No Lack of Food: Never True Current Housing: I Have Housing Concerned About Future Housing: No Difficulty Paying Gas/Electric Bills: No Difficulty Paying for Meds: No Currently Unemployed: No Education: Master's Degree or Higher Difficulty w/ Childcare or Family Care: No Living arrangements: with family Additional living arrangements comments: Spiritual care concerns: No Meds Home Medications and Allergies Home Medications Medication Instructions Recorded Confirmed Type omeprazole 20 mg capsule,delayed 20 mg PO DAILY 02/05/22 03/30/24 History release metformin 500 mg tablet 250 mg PO QAM 10/12/22 03/30/24 History lisinopril 20 2 tablet PO QAM 10/18/23 03/30/24 History mg-hydrochlorothiazide 12.5 mg tablet ciprofloxacin HCl 500 mg tablet 500 mg PO .COMPLEX #1 tablet 02/01/24 03/30/24 Rx metronidazole 500 mg tablet 500 mg PO .COMPLEX #3 tabs 02/01/24 03/30/24 Rx tirzepatide 12.5 mg/0.5 mL 12.5 mg (0.5 mL) subcut WEEKLY #2 02/20/24 03/30/24 Rx subcutaneous pen injector mL (Mounjaro) atorvastatin 20 mg tablet 20 mg PO DAILY 03/13/24 03/30/24 History docusate sodium 100 mg capsule 200 mg PO DAILY 03/13/24 03/30/24 History multivitamin 1 tablet PO DAILY 03/13/24 03/30/24 History sertraline 100 mg tablet 100 mg PO QAM 03/13/24 03/30/24 History tirzepatide 15 mg/0.5 mL 15 mg (0.5 mL) subcut WEEKLY #2 mL 03/21/24 Rx subcutaneous pen injector (Mounjaro) Allergies Allergy/AdvReac Type Severity Reaction Status Date / Time No Known Allergies Allergy Verified 03/13/24 10:04 Vital Signs Vital Signs - 24 hr 03/30/24 08:33 Temperature 36.3 C L Pulse Rate 64 Respiratory Rate 20 Blood Pressure 124/63 Pulse Oximetry 100 Oxygen Delivery Room Air Exam Const: General: comfortable and no acute distress HENMT: Ears: TM's normal bilaterally Face/Nose/Sinus: Normal nares present Mouth: Yes moist mucous membranes Eyes: General: appearance normal, both eyes and all related structures Sclera: sclerae normal Pupils: Equal, round and reactive pupils present E
--- NOTE | 2024-03-30 08:45 | WPDHPUPDATE1 ---
History and Physical Update Update Date/Time: 03/30/24 08:45 History and Physical has been reviewed, including an updated exam of the patient. There are NO changes in the patient's condition. Risks, benefits, and alternatives have been discussed and questions answered. Patient agrees to proceed with procedure.
--- NOTE | 2024-03-30 09:14 | WPDANESEPPF ---
Anes - Initial Pre Proc Eval Procedure: Operation Date: 03/30/24 09:00 Proposed Procedures p Robotic Assisted Laparoscopic Right Hemicolectomy, Possible Open - Woo Chu MD Date/Time: 03/30/24 09:14 Surgeon: Woo Chu MD Pre Op Diagnosis: cecal villous adenoma Patient Data Age: 78 Gender: M Height: 1.78 m Weight: 82.45 kg Last Vital Signs Temp 36.3 C L 03/30/24 08:33 Pulse 64 03/30/24 08:33 Resp 20 03/30/24 08:33 BP 124/63 03/30/24 08:33 Pulse Ox 100 03/30/24 08:33 O2 Del Method Room Air 03/30/24 08:33 Allergies Allergy/AdvReac Type Severity Reaction Status Date / Time No Known Allergies Allergy Verified 03/13/24 10:04 Home Medications Medication Instructions Recorded Confirmed Type omeprazole 20 mg capsule,delayed 20 mg PO DAILY 02/05/22 03/30/24 History release metformin 500 mg tablet 250 mg PO QAM 10/12/22 03/30/24 History lisinopril 20 2 tablet PO QAM 10/18/23 03/30/24 History mg-hydrochlorothiazide 12.5 mg tablet ciprofloxacin HCl 500 mg tablet 500 mg PO .COMPLEX #1 tablet 02/01/24 03/30/24 Rx metronidazole 500 mg tablet 500 mg PO .COMPLEX #3 tabs 02/01/24 03/30/24 Rx tirzepatide 12.5 mg/0.5 mL 12.5 mg (0.5 mL) subcut WEEKLY #2 02/20/24 03/30/24 Rx subcutaneous pen injector mL (Mounjaro) atorvastatin 20 mg tablet 20 mg PO DAILY 03/13/24 03/30/24 History docusate sodium 100 mg capsule 200 mg PO DAILY 03/13/24 03/30/24 History multivitamin 1 tablet PO DAILY 03/13/24 03/30/24 History sertraline 100 mg tablet 100 mg PO QAM 03/13/24 03/30/24 History tirzepatide 15 mg/0.5 mL 15 mg (0.5 mL) subcut WEEKLY #2 mL 03/21/24 Rx subcutaneous pen injector (Mounjaro) Laboratory Tests 03/30/24 03/30/24 07:38 08:36 POC Capillary Glucose 81 mg/dl (65-105) Blood Type A Positive Antibody Screen Negative ECG: SR with 1st AVB Patient hx anesthesia problems: other (slow to sedate in the past; hx. PTSD requested to wake up without anyone touching him) Family hx anesthesia problems: none Results Review: All pre-operative results and documents have been reviewed as part of the pre-operative evaluation. [facility] Past Medical History Medical History Bone spur of right foot Essential (primary) hypertension Prediabetes PTSD (post-traumatic stress disorder) Surgical History Surgical History History of bilateral knee replacement Hx of cholecystectomy Hx of right inguinal hernia repair Family History Family History Mother Patient's mother is in good health Father Family history of malignant neoplasm Patient's father is Social History Social History Smoking packs per day: 0.02 Smoking cigarettes per day: 0.4 Years smoked: 10 Smoking pack-years: 0.20 Smoking status: Former smoker Tobacco type: cigarettes Smoking end date: 12/11/84 Alcohol intake: never Alcohol use details: DRANK HEAVILY IN HIS 20/30'S, BINGE DRINKER Substance use type: does not use Lack of Transportation: No Lack of Food: Never True Current Housing: I Have Housing Concerned About Future Housing: No Difficulty Paying Gas/Electric Bills: No Difficulty Paying for Meds: No Currently Unemployed: No Education: Master's Degree or Higher Difficulty w/ Childcare or Family Care: No Living arrangements: with family Additional living arrangements comments: Spiritual care concerns: No Anes - Eval Final PreProcedure Day of Procedure 03/30/24 09:14 Patient weight: overweight Heart: regular rate and rhythm Lungs: clear to auscultation Airway: Mallampati scale (dentures are out) class II Neurological: alert and oriented Last oral intake: >/= 8 hours ASA cla
[2024-03-30] MEDS: metroNIDAZOLE 500 MG/ISO 100ML 500 MG/100 ML BAG 100 MG IVPB (09:45)
[2024-03-30] MEDS: ceFAZolin 2 GM/D5W 50 ML 2 GM/50 ML BAG IVPB (09:52)
[2024-03-30] MEDS: LIDO 1%/EPINEPHRINE 1:100,000 20 ML VIAL 30 ML INFILTRATE (10:40)
[2024-03-30] MEDS: BUPivacaine HCL 0.5% PF 30 ML VIAL INFILTRATE (10:41)
[2024-03-30] MEDS: INDOCYANINE GREEN 25 MG VIAL WITH DILUENT 3.75 MG IV PUSH (12:56)
[2024-03-30 15:26] LABS: Glucose Point of Care 132 mg/dl (65-105)
--- NOTE | 2024-03-30 15:32 | PM.OP ---
Procedure Note - Brief Procedure Note - Brief Date of procedure: 03/30/24 Cecal villous adenoma Post-op diagnosis: Same Procedure performed: Robotic assisted laparoscopic right hemicolectomy with stapled anti peristaltic [id number] stapled ileocolic anastomosis. Surgeon: Woo Chu MD Licensed Marriage And Family Therapist: SAMUEL Krishna Anesthesia: GETA Implants: None Estimated blood loss (mL): 50 Drains: No Packing: No Pathology: Yes (Appendix, cecum, right ascending colon, and proximal transverse colon sent to pathology) Complications: No immediate complications Condition: Stable Disposition: PACU
[2024-03-30] MEDS: fentaNYL CITRATE INJ (*CRX) 100 MCG/2 ML VIAL 25 MCG IV PUSH ×6 (15:45→16:06)
[2024-03-30] MEDS: PROPARACAINE HCL 0.5% 15 ML OPHTH SOLN 1 DROP EACH EYE (16:19)
--- NOTE | 2024-03-30 16:26 | W.PM.PROC2 ---
Procedure Note - Detailed Date of Procedure 03/30/24 Pre-op Diagnosis Cecal villous adenoma Post-op Diagnosis Same Procedure Performed Robotic assisted laparoscopic right hemicolectomy with stapled [id number] anti peristaltic ileocolic anastomosis Surgeon Woo Chu MD Cardiopulmonary Physical Therapist SAMUEL Krishna Anesthesia General Indications patient is a 78-year-old gentleman who had a colonoscopy performed was found have a adenomatous mass at the appendiceal orifice. The pathology showed this to be consistent with a villous adenoma. There is no atypia or in Situ carcinoma noted in the polyp. The polyp could not be completely removed by endoscopy and so he now presents for a robotic assisted laparoscopic right hemicolectomy. Findings Patient termite inspector the right colon. There were minor adhesions of the omentum to the lower abdominal wall which were easily taken down. There are no new abnormality seen during the surgery. The patient had a good bowel prep. He had a stapled [id number] ileocolonic anastomosis. Description of Procedure After informed consent was obtained patient brought to the operating room was placed supine position and general endotracheal anesthesia was administered. A Christensen catheter was placed decompress the bladder the abdomen was then prepped and draped usual sterile fashion. Time-out was then performed correctly identifying the patient as well as procedure to be performed. He was given perioperative IV antibiotics. I then started by entering the abdomen left upper quadrant utilizing a 5mm Optiview port. Once inside the abdomen insufflated to adequate pneumoperitoneum of 15mmHg of CO2. 8Mm robotic trocar ports then placed along the left lateral abdominal wall. A 12mm stapler port was also placed. The [employer] robot was then brought to the patient's bedside and docked to the right side of the bed. The robotic arms to the attached the robotic ports. Robotic instruments were then advanced into the abdomen under direct visualization. I then scrubbed out the procedure sent down the robotic console to perform the dissection. I 1st took down the omental adhesions to the lower abdominal wall. This allowed a full view of the right side of the abdomen. The cecum and right ascending colon was very redundant. I 1st started by retracting the small bowel to the left side of the abdomen identifying terminal ileum and the ileocecal valve. With the robotic grasper I then held the midportion of the right ascending colon laterally to tent up the mesentery identified the ileocecal artery a pedicle. Utilizing robotic hook dissection as well as the vessel sealer I then skeletonized the ileocolic pedicle and then divided the ileocolic artery with the vessel sealer. I continued my dissection in the retroperitoneal plane identifying the duodenum and protecting this without injuring it during the rest procedure. My dissection the retroperitoneal plane continued cyst flat to the mid transverse colon. At this point I then divided the right side of the omentum off of the proximal transverse colon utilizing the vessel sealer. I then lifted up the portion the transverse colon and made a defect through the mesentery close to the wall of the mid transverse colon. A 60mm robotic Endo-MACHO stapler was then used to divide the mid transverse colon. I then proceeded to mobilize the appendix off of the peritoneum utilizing the vessel sealer and then made a defect through the mesentery to the distal terminal ileum utilizing the vessel sealer. A reload to the 60mm Endo-MACHO stapler was then used to divide the terminal ileum a couple cm proximal to the ileocecal valve. I then proceeded to mobilize the right colon to the midline. The hepatocolic ligament was then divided utilizing the vessel sealer and then the lateral peritoneal attachments to the right ascending colon were divided utilizing them out the vessel sealer. Lastly the remaining mesentery between the 2
[2024-03-30] MEDS: LACTATED RINGERS 1,000 ML 120 ML IV CONT (17:38)
[2024-03-30] MEDS: IBUPROFEN IV 800 MG/200 ML 800 MG/200 ML BAG 400 MG IVPB (17:39)
[2024-03-30] MEDS: ARTIFICIAL TEARS OPHTH SOLN 15 ML BOTTLE 1 DROP EACH EYE (17:46)
[2024-03-30] MEDS: ENOXAPARIN 40 MG/0.4 ML SYRINGE SUB-Q (17:48)
[2024-03-30] MEDS: HYDROcodone/acetaminophen (*CRX) 5-325 MG TABLET 1 TAB PO (17:52)
[2024-03-30 18:02] LABS: Glucose Point of Care 108 mg/dl (65-105)
[2024-03-30] MEDS: ceFAZolin 1 GM/NS 50 ML 1 GM/50 ML BAG IVPB (18:17)
[2024-03-30] MEDS: DICLOFENAC SODIUM 0.1% OPHTH SOLN 2.5 ML BOTTLE 1 DROP EACH EYE (20:43)
[2024-03-30] MEDS: oxyCODONE HCL (*CRX) 5 MG TAB IR PO (21:20)
[2024-03-31 00:15] LABS: Glucose Point of Care 107 mg/dl (65-105)
[2024-03-31] MEDS: HYDROcodone/acetaminophen (*CRX) 5-325 MG TABLET 1 TAB PO ×2 (00:19→09:02)
[2024-03-31] MEDS: LACTATED RINGERS 1,000 ML 120 ML IV CONT ×2 (01:37→11:27)
[2024-03-31] MEDS: ceFAZolin 1 GM/NS 50 ML 1 GM/50 ML BAG IVPB ×2 (01:38→11:27)
[2024-03-31] MEDS: oxyCODONE HCL (*CRX) 5 MG TAB IR PO ×4 (01:41→20:04)
[2024-03-31] MEDS: IBUPROFEN IV 800 MG/200 ML 800 MG/200 ML BAG 400 MG IVPB ×2 (02:30→13:28)
[2024-03-31 03:22] VITALS: PULSE 94; RESP 20; O2SAT 96
[2024-03-31 05:11] VITALS: BP 114/54; PULSE 69; RESP 18; TEMP 36.1; O2SAT 98
[2024-03-31 05:28] LABS: Glucose Point of Care 83 mg/dl (65-105)
[2024-03-31 05:48] LABS: Basophils Percent Auto 0.4 % (0.2-1.2); Eosinophils Percent Auto 0.4 % (0-4.4); Hematocrit 34.5 % (42.0-52.0); Hemoglobin 11.4 g/dL (14.0-18.0); Immature Granulocyte Absolute 0.01 K/mm3 (0.00-0.031); Immature Granulocyte Percent A 0.1 % (0-0.5); Lymphocytes Absolute Auto 1.43 K/mm3 (0.9-3.2); Mean Corpuscular Hemoglobin 30.2 pg (26-34); Mean Corpuscular Volume 91.5 fl (80-100); Mean Platelet Volume 10.2 fl (7.4-10.4); Monocytes Absolute Auto 0.6 K/mm3 (0.1-0.6); Monocytes Percent Auto 7.4 % (2.6-8.5); Neutrophils Absolute Auto 5.9 K/mm3 (1.3-6.7); Neutrophils Percent Auto 73.7 % (45.5-73.1); Platelet Count Result 169 k/mm3 (150-375); Red Blood Count 3.77 M/mm3 (4.6-6.20); Red Cell Distribution Width 13.9 % (11.5-14.5)
[2024-03-31 06:08] LABS: Anion Gap 4 mmol/L (4-12); Blood Urea Nitrogen 12 mg/dL (9-20); Calcium 8.3 mg/dL (8.4-10.2); Carbon Dioxide 30 mmol/L (22-30); Chloride 102 mmol/L (98-107); Estimated CRCL calculation 77 ml/min; Estimated Glomerular Filt Rate > 60; Glucose 82 mg/dL (65-110); Potassium 3.9 mmol/L (3.4-5.0); Sodium 136 mmol/L (137-145)
[2024-03-31 08:08] LABS: Glucose Point of Care 117 mg/dl (65-105)
[2024-03-31] MEDS: ENOXAPARIN 40 MG/0.4 ML SYRINGE SUB-Q (09:02)
[2024-03-31] MEDS: SERTRALINE HCL 50 MG TABLET 100 MG PO (09:03)
[2024-03-31] MEDS: ALVIMOPAN 12 MG CAPSULE PO (09:03)
[2024-03-31] MEDS: metFORMIN HCL 250 MG TABLET PO (09:03)
[2024-03-31] MEDS: PANTOPRAZOLE 40 MG TABLET PO (09:04)
[2024-03-31] MEDS: MULTIVITAMINS THERAPEUTIC TAB (*BKC) 1 TABLET PO (09:04)
[2024-03-31] MEDS: lisinopriL 20 MG TABLET 40 MG PO (09:04)
[2024-03-31] MEDS: hydroCHLOROthiazide 25 MG TABLET PO (09:04)
[2024-03-31] MEDS: ATORVASTATIN 20 MG TABLET PO (09:04)
--- NOTE | 2024-03-31 10:36 | PC.NURSE ---
Patient resting in bed. Complaints of pain in abdomen. Patient calm, cooperative, and very active in his care. Pain management, mobility, and incentive spirometer discussed at length. Patient tolerating clear liquids. Bowel sounds active.
[2024-03-31 12:04] LABS: Glucose Point of Care 100 mg/dl (65-105)
[2024-03-31] MEDS: DICLOFENAC SODIUM 0.1% OPHTH SOLN 2.5 ML BOTTLE 1 DROP EACH EYE (13:28)
--- NOTE | 2024-03-31 14:05 | PM.PNGS ---
Progress Note: A&P Assessment and Plan (1) Villous adenoma: Code(s): D48.9 - Neoplasm of uncertain behavior, unspecified Status: Acute Assessment and Plan: Doing well postop day 1. Christensen catheter is out and he is voiding well. He is tolerating liquid diet without difficulty. Will advance to soft diet. Still has fair amount of abdominal tenderness and occasionally requires IV analgesics. Will ambulate a bit more and watch again tonight in the hospital. If continues to improve, probably go home tomorrow. (2) Type 2 diabetes mellitus: Code(s): E11.9 - Type 2 diabetes mellitus without complications Status: Chronic Assessment and Plan: Blood sugars in the low 100s Subjective Subjective Date/Time Seen: 03/31/24 14:05 Post Op day: 1 Patient reports: no new complaints, pain is less, tolerating liquids well, voiding w/o difficulty, flatus, no bowel movement and afebrile Exam Const: General: comfortable and no acute distress Orientation/consciousness: patient oriented x3 GI: GI Palp: Yes Soft to palpation, Yes Tenderness to palpation present (GI) (Mild appropriate postoperative tenderness), No Guarding due to palpation present (GI) and No Rebound tenderness present Auscultation: normal bowel sounds Neuro: General: patient oriented x3 and no focal motor deficits Extrem: General: no calf tenderness and no edema Psych: Affect: normal affect Insight: Good insight present (Psych) Judgement: Good judgement present (Psych) Objective Data Vital Signs Vital Signs: Vital Signs - 24 hr 03/30/24 15:08 03/30/24 15:23 03/30/24 15:38 Temperature 36.6 C Pulse Rate 88 92 104 H Respiratory Rate 16 15 19 Blood Pressure 120/60 128/53 L 130/65 Pulse Oximetry 100 100 98 Oxygen Delivery Simple Face Mask Simple Face Mask Room Air Oxygen Flow Rate 8 8 03/30/24 15:45 03/30/24 16:00 03/30/24 16:15 Temperature Pulse Rate 97 98 102 H Respiratory Rate 18 14 26 H Blood Pressure 133/74 133/59 L 129/54 L Pulse Oximetry 98 99 100 Oxygen Delivery Room Air Room Air Room Air Oxygen Flow Rate 03/30/24 16:30 03/30/24 16:42 03/30/24 18:00 Temperature 36.7 C Pulse Rate 99 102 H 102 H Respiratory Rate 15 19 16 Blood Pressure 126/64 118/65 117/57 L Pulse Oximetry 98 96 93 Oxygen Delivery Room Air Room Air Oxygen Flow Rate 03/30/24 18:15 03/30/24 18:45 03/30/24 21:01 Temperature 36.8 C 36.4 C 36.4 C L Pulse Rate 99 105 H 94 Respiratory Rate 18 16 20 Blood Pressure 117/60 110/60 113/58 L Pulse Oximetry 95 96 96 Oxygen Delivery Oxygen Flow Rate 03/31/24 03:22 03/31/24 05:11 Temperature 36.1 C L Pulse Rate 94 69 Respiratory Rate 20 18 Blood Pressure 114/54 L Pulse Oximetry 96 98 Oxygen Delivery Room Air Oxygen Flow Rate Intake/Output Intake/Output: Intake & Output 03/28/24 03/29/24 03/30/24 03/31/24 23:59 23:59 23:59 23:59 Intake Total 4400 3166 Output Total 290 600 Balance 4110 2566 Meds/Results Medications: Active Medications Generic Name Dose Route Start Last Admin Trade Name Freq PRN Reason Stop Dose Admin Acetaminophen 1,000 mg 03/30/24 16:44 Acetaminophen 500 Mg Tablet PO Q6H PRN Mild Pain (1-3) or Fever Hydrocodone Bitart/Acetaminophen 1 tab 03/30/24 16:44 03/31/24 09:02 Hydrocodone/Acetaminophen (*Crx) 5-325 Mg Tablet PO 1 tab Q4H PRN Administration Pain Rated 4-6 Artificial Tears 1 drop 03/30/24 16:13 03/30/24 17:46 Artificial Tears Ophth Soln 15 Ml Bottle EACH EYE 1 drop Q2H PRN Administration Dry Eye(s) Atorvastatin Calcium 20 mg 03/31/24 09:00 03/31/24 09:04 Atorvastatin 20 Mg Tablet PO 20 mg DAILY OMAR Administration Dextrose 12.5 gm 03/30/24 16:44 Dextrose 50% 25 Gm/50 Ml Syringe IV PUSH PRN PRN Hypoglycemia Protocol Diclofenac Sodium 1 drop 03/30/24 22:00 03/31/24 13:28 Diclofenac Sodium 0.1% Ophth Soln 2.5 Ml Bottle EACH EYE
[2024-03-31 17:07] LABS: Glucose Point of Care 109 mg/dl (65-105)
[2024-03-31 21:07] VITALS: BP 125/53; PULSE 70; RESP 16; TEMP 36.5; O2SAT 98
[2024-03-31 21:11] LABS: Glucose Point of Care 104 mg/dl (65-105)
[2024-04-01] MEDS: oxyCODONE HCL (*CRX) 5 MG TAB IR PO ×3 (01:04→15:48)
[2024-04-01] MEDS: LACTATED RINGERS 1,000 ML 80 ML IV CONT ×2 (01:06→12:11)
[2024-04-01] MEDS: HYDROcodone/acetaminophen (*CRX) 5-325 MG TABLET 1 TAB PO ×4 (04:01→21:44)
[2024-04-01 04:04] VITALS: BP 133/66; PULSE 76; RESP 17; TEMP 36.4; O2SAT 97
[2024-04-01 05:37] LABS: Hematocrit 34.6 % (42.0-52.0); Hemoglobin 11.6 g/dL (14.0-18.0); Mean Corpuscular HGB Conc 33.5 g/dl (32-36); Mean Corpuscular Hemoglobin 30.4 pg (26-34); Mean Corpuscular Volume 90.8 fl (80-100); Mean Platelet Volume 9.9 fl (7.4-10.4); Platelet Count Result 164 k/mm3 (150-375); Red Blood Count 3.81 M/mm3 (4.6-6.20); Red Cell Distribution Width 13.8 % (11.5-14.5); White Blood Count 7.3 K/mm3 (4.5-10.0)
[2024-04-01 05:51] LABS: Anion Gap 3 mmol/L (4-12); Blood Urea Nitrogen 7 mg/dL (9-20); Calcium 8.3 mg/dL (8.4-10.2); Carbon Dioxide 33 mmol/L (22-30); Chloride 101 mmol/L (98-107); Estimated CRCL calculation 89 ml/min; Estimated Glomerular Filt Rate > 60; Glucose 94 mg/dL (65-110); Potassium 3.3 mmol/L (3.4-5.0); Sodium 137 mmol/L (137-145)
[2024-04-01] MEDS: DICLOFENAC SODIUM 0.1% OPHTH SOLN 2.5 ML BOTTLE 1 DROP EACH EYE ×4 (05:57→21:45)
[2024-04-01 08:16] LABS: Glucose Point of Care 107 mg/dl (65-105)
[2024-04-01] MEDS: ENOXAPARIN 40 MG/0.4 ML SYRINGE SUB-Q (09:14)
[2024-04-01] MEDS: ATORVASTATIN 20 MG TABLET PO (09:14)
[2024-04-01] MEDS: SERTRALINE HCL 50 MG TABLET 100 MG PO (09:15)
[2024-04-01] MEDS: hydroCHLOROthiazide 25 MG TABLET PO (09:15)
[2024-04-01] MEDS: metFORMIN HCL 250 MG TABLET PO (09:15)
[2024-04-01] MEDS: PANTOPRAZOLE 40 MG TABLET PO (09:15)
[2024-04-01] MEDS: MULTIVITAMINS THERAPEUTIC TAB (*BKC) 1 TABLET PO (09:15)
[2024-04-01] MEDS: lisinopriL 20 MG TABLET 40 MG PO (09:15)
[2024-04-01 12:06] LABS: Glucose Point of Care 93 mg/dl (65-105)
[2024-04-01] MEDS: ACETAMINOPHEN 500 MG TABLET 1000 MG PO (12:13)
--- NOTE | 2024-04-01 13:22 | PM.PNGS ---
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 Incisions are healing well. Having some liquid stools. Has good bowel sounds and tolerating oral intake. Will try trazodone at bedtime to help him sleep. Will restart IV ibuprofen as a p.r.n. med. Should be more comfortable tomorrow or Tuesday and able to go home. Subjective Subjective Date/Time Seen: 04/01/24 13:22 Post Op day: 2 Patient reports: still having pain (Quite a bit of pain last night requiring both oral and intravenous analgesics.), tolerating a regular diet (Low-fiber diet), voiding w/o difficulty, flatus, bowel movement and afebrile Review of Systems Review of Systems: All systems reviewed & are unremarkable except as noted in HPI and below (HPI) Constitutional: Constitutional: Reports difficulty sleeping Exam Const: General: cooperative, comfortable, no acute distress and average body habitus Orientation/consciousness: patient oriented x3 and No confusion GI: Inspection: no abdominal wall ecchymosis, non-distended and incision (Dry and healing nicely) GI Palp: Yes Soft to palpation, Yes Tenderness to palpation present (GI) (Diffuse tenderness mostly with incisions, no guarding), No Hernia present, No Palpable mass present and No Ascites present Auscultation: normoactive bowel sounds Objective Data Vital Signs Vital Signs: Vital Signs - 24 hr 03/31/24 21:07 03/31/24 20:04 04/01/24 04:04 Temperature 36.5 C 36.4 C Pulse Rate 70 76 Respiratory Rate 16 17 Blood Pressure 125/53 L 133/66 Pulse Oximetry 98 97 Oxygen Delivery Room Air 04/01/24 09:15 Temperature Pulse Rate Respiratory Rate Blood Pressure Pulse Oximetry Oxygen Delivery Room Air Intake/Output Intake/Output: Intake & Output 03/29/24 03/30/24 03/31/24 04/01/24 23:59 23:59 23:59 23:59 Intake Total 4400 4886 1346.7 Output Total 290 1275 450 Balance 4110 3611 896.7 Meds/Results Medications: Active Medications Generic Name Dose Route Start Last Admin Trade Name Freq PRN Reason Stop Dose Admin Acetaminophen 1,000 mg 03/30/24 16:44 04/01/24 12:13 Acetaminophen 500 Mg Tablet PO 1,000 mg Q6H PRN Administration Mild Pain (1-3) or Fever Hydrocodone Bitart/Acetaminophen 1 tab 03/30/24 16:44 04/01/24 10:31 Hydrocodone/Acetaminophen (*Crx) 5-325 Mg Tablet PO 1 tab Q4H PRN Administration Pain Rated 4-6 Artificial Tears 1 drop 03/30/24 16:13 03/30/24 17:46 Artificial Tears Ophth Soln 15 Ml Bottle EACH EYE 1 drop Q2H PRN Administration Dry Eye(s) Atorvastatin Calcium 20 mg 03/31/24 09:00 04/01/24 09:14 Atorvastatin 20 Mg Tablet PO 20 mg DAILY OMAR Administration Dextrose 12.5 gm 03/30/24 16:44 Dextrose 50% 25 Gm/50 Ml Syringe IV PUSH PRN PRN Hypoglycemia Protocol Diclofenac Sodium 1 drop 03/30/24 22:00 04/01/24 09:14 Diclofenac Sodium 0.1% Ophth Soln 2.5 Ml Bottle EACH EYE 04/03/24 21:59 1 drop Q8HR OMAR Administration Enoxaparin Sodium 40 mg 03/31/24 09:00 04/01/24 09:14 Enoxaparin 40 Mg/0.4 Ml Syringe SUB-Q 40 mg DAILY OMAR Administration Glucagon 1 mg 03/30/24 16:44 Glucagon For Inj 1 Mg Vial IM PRN PRN Hypoglycemia Protocol Glucose 15 gm 03/30/24 16:44 Glucose Oral Gel 15 Gm Of Glucse In 37.5 Gm Tube PO PRN PRN Hypoglycemia Protocol Hydrochlorothiazide 25 mg 03/31/24 09:00 04/01/24 09:15 Hydrochlorothiazide 25 Mg Tablet PO 25 mg QAM OMAR Administration Dextrose 1,000 mls @ 100 mls/hr 03/30/24 16:44 Dextrose 5% 1,000 Ml IVPB PRN PRN Hypoglycemia Protocol Lactated Ringer's 1,000 mls @ 80 mls/hr 03/30/24 17:10 04/01/24 12:11 Lr - Lactated Ringers Iv IV CONT 80 mls/
[2024-04-01] MEDS: IBUPROFEN IV 800 MG/200 ML 800 MG/200 ML BAG 400 MG IVPB ×2 (13:47→20:19)
[2024-04-01 14:00] VITALS: BP 111/62; PULSE 72; RESP 17; TEMP 36.4; O2SAT 100
[2024-04-01 17:08] LABS: Glucose Point of Care 106 mg/dl (65-105)
[2024-04-01] MEDS: traZODone HCL 50 MG TABLET PO (20:19)
[2024-04-01 20:37] LABS: Glucose Point of Care 96 mg/dl (65-105)
[2024-04-01 22:00] VITALS: BP 127/61; PULSE 63; RESP 18; TEMP 36.7; O2SAT 100
[2024-04-02] MEDS: ACETAMINOPHEN 500 MG TABLET 1000 MG PO ×2 (01:54→09:24)
[2024-04-02] MEDS: LACTATED RINGERS 1,000 ML 80 ML IV CONT (01:56)
[2024-04-02] MEDS: LORazepam INJ (*CRX) 2 MG/ML VIAL 1 MG IV PUSH (02:27)
[2024-04-02] MEDS: DICLOFENAC SODIUM 0.1% OPHTH SOLN 2.5 ML BOTTLE 1 DROP EACH EYE ×2 (05:59→13:06)
[2024-04-02] MEDS: IBUPROFEN IV 800 MG/200 ML 800 MG/200 ML BAG 400 MG IVPB (05:59)
[2024-04-02 06:00] VITALS: BP 113/62; PULSE 60; RESP 18; TEMP 36.7; O2SAT 95
[2024-04-02 08:07] LABS: Basophils Percent Auto 0.6 % (0.2-1.2); Eosinophils Absolute Auto 0.3 K/mm3 (0-0.3); Hematocrit 33.4 % (42.0-52.0); Hemoglobin 11.1 g/dL (14.0-18.0); Immature Granulocyte Absolute 0.02 K/mm3 (0.00-0.031); Immature Granulocyte Percent A 0.3 % (0-0.5); Lymphocytes Absolute Auto 0.93 K/mm3 (0.9-3.2); Lymphocytes Percent Auto 14.9 % (18.3-44.2); Mean Corpuscular HGB Conc 33.2 g/dl (32-36); Mean Corpuscular Hemoglobin 30.3 pg (26-34); Mean Corpuscular Volume 91.3 fl (80-100); Mean Platelet Volume 10.5 fl (7.4-10.4); Monocytes Absolute Auto 0.6 K/mm3 (0.1-0.6); Monocytes Percent Auto 9.3 % (2.6-8.5); Neutrophils Absolute Auto 4.4 K/mm3 (1.3-6.7); Neutrophils Percent Auto 69.9 % (45.5-73.1); Platelet Count Result 165 k/mm3 (150-375); Red Blood Count 3.66 M/mm3 (4.6-6.20); Red Cell Distribution Width 13.5 % (11.5-14.5); White Blood Count 6.2 K/mm3 (4.5-10.0)
[2024-04-02 08:18] LABS: Alanine Aminotransferase 12 U/L (6-50); Albumin Level 2.9 g/dL (3.5-5.1); Alkaline Phosphatase 58 U/L (38-126); Anion Gap 2 mmol/L (4-12); Aspartate Amino Transferase 20 U/L (17-59); Bilirubin,Total 0.5 mg/dL (0.2-1.3); Blood Urea Nitrogen 7 mg/dL (9-20); Calcium 8.1 mg/dL (8.4-10.2); Carbon Dioxide 33 mmol/L (22-30); Chloride 102 mmol/L (98-107); Estimated CRCL calculation 105 ml/min; Estimated Glomerular Filt Rate > 60; Glucose 90 mg/dL (65-110); Potassium 2.9 mmol/L (3.4-5.0); Sodium 137 mmol/L (137-145)
[2024-04-02 08:18] LABS: Glucose Point of Care 91 mg/dl (65-105)
[2024-04-02] MEDS: POTASSIUM CHLORIDE 20 MEQ ER TABLET 40 MEQ PO (09:23)
[2024-04-02] MEDS: lisinopriL 20 MG TABLET 40 MG PO (09:23)
[2024-04-02] MEDS: metFORMIN HCL 250 MG TABLET PO (09:23)
[2024-04-02] MEDS: PANTOPRAZOLE 40 MG TABLET PO (09:24)
[2024-04-02] MEDS: SERTRALINE HCL 50 MG TABLET 100 MG PO (09:24)
[2024-04-02] MEDS: ATORVASTATIN 20 MG TABLET PO (09:24)
[2024-04-02] MEDS: MULTIVITAMINS THERAPEUTIC TAB (*BKC) 1 TABLET PO (09:24)
[2024-04-02] MEDS: hydroCHLOROthiazide 25 MG TABLET PO (09:24)
[2024-04-02] MEDS: ENOXAPARIN 40 MG/0.4 ML SYRINGE SUB-Q (09:25)
[2024-04-02] MEDS: MAGNESIUM SULF 2 GM/WATER 50ML 2 GM/50 ML BAG IVPB (09:25)
[2024-04-02] MEDS: POTASSIUM CHLORIDE INJ 40 MEQ in SODIUM CHLORIDE 0.9% IV 500 ML 130 MEQ IVPB (10:39)
[2024-04-02 11:41] LABS: Glucose Point of Care 99 mg/dl (65-105)
[2024-04-02 14:00] VITALS: BP 131/68; PULSE 58; RESP 20; TEMP 36.6; O2SAT 97
[2024-04-02 16:14] LABS: Potassium 4.1 mmol/L (3.4-5.0)
--- NOTE | 2024-04-02 16:25 | PM.DS ---
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 The pathology showed this to be consistent with a villous adenoma. There is no atypia or in Situ carcinoma noted in the polyp. The polyp could not be completely removed by endoscopic be and so he presents for a robotic assisted laparoscopic right hemicolectomy by Dr. Chu. Hospital Course: The patient presented for surgery on 03/30/2024. He underwent a robotic assisted laparoscopic right hemicolectomy with stapled [id number] ileocolic anastomosis by Dr. Chu. Surgery was straightforward with no other new abnormalities seen during the surgery. His diet was slowly advanced postoperatively. His Christensen catheter was removed postop day 1 and he was voiding well. Bowel function had returned by postop day 2. Over the weekend, he did have some increased abdominal pain at night requiring IV analgesics. He was monitored for another night and his pain started improving. He was able to transition to oral analgesics with good pain control by postop day 3. Serial labs were monitored and unremarkable other than mild hypokalemia. His potassium came down to 2.9 this morning, which was replaced with IV and oral potassium. He is up ambulating and tolerating activity well. His potassium was rechecked this afternoon and was 4.1. I discussed the case with Dr. Chu and he agrees that he is stable for discharge today. Status at Discharge Functional status at discharge: independent ambulation Overall status at discharge: patient is progressing back to baseline Time Spent with Patient Time attestation: Total time spent providing and/or coordinating discharge services: Time spent: Less than 30 minutes Exam Const: General: comfortable and no acute distress Resp: Effort & Inspection: normal respiratory effort Auscultation: clear to auscultation bilaterally Cardio: Rate: regular rate Rhythm: regular rhythm GI: Inspection: non-distended and incision (incisions dry and intact) GI Palp: Yes Soft to palpation, Yes Tenderness to palpation present (GI) (incisional) and No Guarding due to palpation present (GI) Auscultation: normal bowel sounds Neuro: General: moves all extremities and no focal motor deficits Extrem: General: no calf tenderness and no edema Psych: Mental Status: mental status grossly normal Insight: Good insight present (Psych) DS: Data Data Completed and Pending Pending studies at discharge: Pending at discharge 03/30/24 14:30 Surgical [PTH] Routine Labs on day of discharge: Labs from last 24 hours 04/02/24 04/02/24 04/02/24 15:50 11:34 07:49 WBC 6.2 RBC 3.66 L Hgb 11.1 L Hct 33.4 L MCV 91.3 MCH 30.3 MCHC 33.2 RDW 13.5 Plt Count 165 MPV 10.5 H Immature Gran % (Auto) 0.3 Neut % (Auto) 69.9 Lymph % (Auto) 14.9 L [place] % (Auto) 9.3 H Eos % (Auto) 5.0 H Baso % (Auto) 0.6 Lymph # (Auto) 0.93 [place] # (Auto) 0.6 Eos # (Auto) 0.3 Baso # (Auto) 0.0 Abs Immat Gran (auto) 0.02 Absolute Neuts (auto) 4.4 Absolute Nucleated RBC 0.000 Nucleated RBC % 0.0 Sodium 137 Potassium 4.1 2.9 L Chloride 102 Carbon Dioxide 33 H Anion Gap 2 L BUN 7 L Creatinine 0.50 L Estim Creat Clear Calc 105 Estimated GFR > 60 Glucose 90 POC Capillary Glucose 99 Calcium 8.1 L Total Bilirubin 0.5 AST 20 ALT 12 Alkaline Phosphatase 58 Total Protein 5.0 L Albumin 2.9 L 04/02/24 04/01/24 04/01/24 07:46 20:35 16:55 WBC RBC Hgb Hct MCV MCH MCHC RDW Plt
[2024-04-02 17:00] LABS: Glucose Point of Care 102 mg/dl (65-105)
== END 2024-04-02 17:35 | disposition home or self-care (01) | DRG 331 ==
LOC: ANHSURGERY 16:51 → ANH2MED 17:11
PROVIDERS: Surgery; Admitting Provider Surgery; PCP Family Medicine; Visit Provider Nurse Practitioner Family
PROC: 0DTF4ZZ Resection of Right Large Intestine, Percutaneous Endoscopic Approach (ICD-10-PCS; principal; 2024-03-30 09:00)
DX: D37.4 Neoplasm of uncertain behavior of colon (principal); I10 Essential (primary) hypertension; R73.03 Prediabetes; F43.10 Post-traumatic stress disorder, unspecified; Z96.653 Presence of artificial knee joint, bilateral; Z87.891 Personal history of nicotine dependence
CPT/HCPCS: 36415; 80048; 80053; 82948; 84132; 85014; 85018; 85025; 85027; 86850; 86900; 86901; 88307; 93005; A9270; J0690; J1100; J1171; J1650; J1741; J1836; J1885; J2003; J2004; J2060; J2405; J2704; J3010; J3475; J3480; J7030; J7040; J7120

== ENCOUNTER 2024-04-24 14:26 | Outpatient (CLI) | payer MEDICARE, SELFPAY ==
[2024-04-24 16:10] LABS: Hemoglobin A1C 5.4 % (<5.7)
[2024-04-24 21:48] LABS: Creatinine Urine 55.8 mg/dL
[2024-04-24 21:58] LABS: MALB Creatinine Ratio < 10.8 mg/g (0-30); Microalbumin Urine Random < 6.0 mg/L (0-16.7)
== END 2024-04-24 14:27 | disposition home or self-care (01) ==
LOC: ANHLAB 14:27
PROVIDERS: PCP Family Medicine; Visit Provider Family Medicine
DX: E11.9 Type 2 diabetes mellitus without complications (principal)
CPT/HCPCS: 36415; 82043; 83036

== ENCOUNTER 2024-10-11 08:36 | Outpatient (CLI) | payer MEDICARE, SELFPAY ==
--- NOTE | ~2024-10-11 | XR_ITS ---
Left Shoulder Technique: AP and scapular Y views were obtained. Clinical History: Pain Findings: No acute fracture or dislocation is seen. Probable old, healed fracture of the distal left clavicle. The glenohumeral and acromioclavicular joint spaces are preserved. Soft tissues are unremar kable. Impression: No acute abnormality. Probable old, healed fracture deformity of the distal left clavicle. Reviewed, dictated and finalized at location . Impression: No acute abnormality. Probable old, healed fracture deformity of the distal left clavicle.
--- NOTE | ~2024-10-11 | XR_ITS ---
Right Hand Technique: PA, oblique, and lateral views were obtained. Clinical History: Pain Findings: No acute fracture or dislocation is seen. Osseous alignment is anatomic. There is mild dege nerative change of the third MCP joint. There are minimal scattered degenerative changes of the inter phalangeal joints of the fingers. Soft tissues are unremarkable. Impression: Mild polyarticular osteoarthritis, as detailed above. Reviewed, dictated and finalized at location M. Impression: Mild polyarticular osteoarthritis, as detailed above.
--- OUTSIDE RECORDS SUMMARY | 2024-10-11 08:42 | XMS_ITS | Continuity of Care Document ---
Author Name [facility] Organization [facility] Care Team Providers Care Advertising Agent Name Role Phone [facility] Unavailable Unavailable Problems Combined list of problems from Department of Defense and Veterans Affairs facilities. It does not include entries that were removed or entered in error. Problem Status Onset Date Problem Type Date of Resolution Comments Source AAA - Abdominal aortic aneurysm Active Condition [facility] Chronic Post-Traumatic Stress Disorder Following Combat (RUST [id number]) Active Condition [facility] Diabetes mellitus without complication Active Condition [facility] Dysphagia Active Condition [facility] Exposure to potentially hazardous substance Active Condition [facility] GERD - Gastro-Esophageal Reflux Disease (RUST [id number]) Active Condition [facility] Hearing Loss (RUST [id number]) Active Condition [facility] HTN - Hypertension (RUST [id number]) Active Condition [facility] Hyperlipidemia (RUST [id number]) Active Condition [facility] Obesity (RUST [id number]) Active Condition [facility] Vitamin D Deficiency (RUST [id number]) Active Condition [facility] Diagnosis: ICD-10-CM F43.9 Reaction to severe stress, unspecified Active Diagnosis [facility] Diagnosis: ICD-10-CM I10 Essential (primary) hypertension Active Diagnosis [facility] Diagnosis: ICD-10-CM E11.9 Type 2 diabetes mellitus without complications Active Diagnosis [facility] Diagnosis: ICD-10-CM F43.12 Post-traumatic stress disorder, chronic Active Diagnosis [facility] Diagnosis: ICD-10-CM H26.491 Other secondary cataract, right eye Active Diagnosis [facility] Medications Combined list of outpatient medications from Department of Defense and Veterans [facility] facilities.Medications provided include 1) outpatient medications from the last 15 months, and 2) patient-reported medications. Medication Details Route Status Patient Instructions Prescription Expires Prescription Number Last Dispense Date Ordering Provider Order Date Order Qty Source ATORVASTATI N CA 20MG TAB TAKE ONE-HALF TABLET BY MOUTH EVERY EVENING ORAL SUSPEND ED 10/08/2025 [id number] DENISE,AN EEMS 2024 45 [facility] N ATORVASTATI N CA 20MG TAB TAKE ONE-HALF TABLET BY MOUTH EVERY EVENING ORAL DISCONT INUED 10/12/2024 [id number] DENISE,AN EEMS 2023 45 [facility] N ATORVASTATI N CA 20MG TAB TAKE ONE-HALF TABLET BY MOUTH EVERY EVENING ORAL DISCONT INUED 04/10/2024 [id number] 4 DENISE,AN EELA 2022 45 [facility] N HYDROCHLORO THIAZIDE 12.5MG/RAFI NOPRIL 20MG TAB TAKE 2 TABLETS BY MOUTH EVERY MORNING FOR HEART OR BLOOD PRESSURE ORAL SUSPEND ED 10/08/2025 [id number] 5 DENISE,AN EELA 2024 180 [facility] N HYDROCHLORO THIAZIDE 12.5MG/RAFI NOPRIL 20MG TAB TAKE 2 TABLETS BY MOUTH EVERY MORNING FOR HEART OR BLOOD PRESSURE ORAL DISCONT INUED 10/12/2024 [id number] 5 DENISE,AN EELA 2023 180 [facility] N HYDROCHLORO THIAZIDE 12.5MG/RAFI NOPRIL 20MG TAB TAKE 2 TABLETS BY MOUTH EVERY MORNING FOR HEART OR BLOOD PRESSURE ORAL DISCONT INUED 04/10/2024 [id number] DENISE,AN EELA 2022 180 [facility] N METFORMIN HCL 500MG TAB TAKE ONE-HALF TABLET BY MOUTH EVERY MORNING TAKE WITH FOOD. AVOID ALCOHOL. DISCONTI NUE BEFORE GETTING XRAY DYE. ORAL SUSPEND ED 10/08/2025 [id number] 5 DENISE,AN EELA 2024 45 [facility] N METFORMIN HCL 500MG TAB TAKE ONE-HALF TABLET BY MOUTH EVERY MORNING TAKE WITH FOOD. AVOID ALCOHOL. DISCONTI NUE BEFORE GETTING XRAY DYE. ORAL DISCONT INUED 10/12/2024 [id number] 5 DENISE,AN EELA 2023 45 [facility] N METFORMIN HCL 500MG TAB TAKE ONE-HALF TABLET BY MOUTH EVERY MORNING TAKE WITH FOOD. AVOID ALCOHOL. DISCONTI NUE BEFORE GETTING XRAY DYE. ORAL DISCONT INUED 04/10/2024 [id number] 4 DENISE,AN EELA 2022 45 [facility] N OMEPRAZOLE 20MG CAP,EC TAKE ONE CAPSULE BY MOUTH EVERY MORNING BEFORE A MEAL TO LOWER STOMACH ACID. TAKE 30 MINUTES PRIOR TO FOOD. ORAL SUSPEND ED 10/08/2025 [id number] 5 DENISE,AN EELA 2024 90 [facility] N OMEPRAZOLE 20MG CAP,EC TAKE ONE CAPSULE BY MOUTH EVERY MORNING BEFORE A MEAL TO LOWER STOMACH ACID. TAKE 30 MINUTES PRIOR TO FOOD. ORAL DISCONT INUED 10/12/2024 [id number] 5 DENISE,AN EELA 2023 90 [facility] N OMEPRAZOLE 20MG CAP,EC TAKE ONE CAPSULE BY MOUTH EVERY MORNING BEFORE A MEAL TO LOWER STOMACH ACID. TAKE 30 MINUTES PRIOR TO FOOD. ORAL DISCONT INUED 04/10/2024 [id number] 4 DENISE,AN EELA 2023 90 [facility] N PREDNISOLON E ACETATE 1% SUSP,OPH INSTILL 1 DROP IN RIGHT EYE FOUR TIMES A DAY OPHTHA LMIC 10/01/2023 [id number] COURTNEY,N ATALIA G 2023 5 [facility] N SERTRALINE HCL 100MG TAB TAKE ONE AND ONE-HALF TABLETS BY MOUTH EVERY MORNING FOR MOOD ORAL SUSPEND ED 01/05/2025 [id number] DENISE,AN EELA 2024 135 [facility] N SERTRALINE HCL 100MG TAB TAKE ONE TABLET BY MOUTH EVERY MORNING FOR MOOD ORAL DISCONT INUED (EDIT) 10/12/2024 [id number] 5 DENISE,AN EELA 2023 90 [facility] N SERTRALINE HCL 100MG TAB TAKE ONE TABLET BY MOUTH EVERY MORNING FOR MOOD ORAL DISCONT INUED 04/10/2024 [id number] 4 DENISE,AN EELA 2022 90 [facility] N TIRZEPATIDE 15MG/0.5ML INJ,SOLN PACK,4 INJECT 15MG (0.5ML) UNDER THE SKIN EVERY WEEK SUBCUT ANEOUS ACTIVE DENISE,AN EELA 2024 [facility] N Immunizations Combined list of available immunizations from the Department of Defense and [facility] facilities. Immunization Series Date Given Administered By Site Reaction Lot Number CVX Code Drug Manufacturing Technology Analyst Status Comments Source INFLUENZA, UNSPECIFIED FORMULATION 2023 88 complet ed HISTORICA L INFORMATI ON - SOURCE UNSPECIFI [facility] COVID-19 (PFIZER), MRNA, LNP-S, PF, KARIME-SUCROSE, 30 MCG/0.3 ML (AGES 12+ YEARS) 1 2022 ANGELICA HAMLIN LEFT DELTO ID [id number] 309 complet ed [facility] DIVISIO N INFLUENZA, HIGH-DOSE, QUADRIVALENT 2022 ANGELICA HAMLIN LEFT DELTO ID [id number] 197 complet ed [facility] AT [facility] RSV, BIVALENT, PROTEIN SUBUNIT RSVPREF, DILUENT RECONSTITUTED , 0.5 ML, PF 2022 ANGELICA HAMLIN RIGHT DELTO ID [id number] 305 complet ed [facility] DIVISIO N INFLUENZA VACCINE, QUADRIVALENT, ADJUVANTED 2022 IRINA IGLESIAS RIGHT DELTO ID [id number] 205 complet ed [facility]MIN[facility] AT [facility] DIVISIO N PNEUMOCOCCAL CONJUGATE PCV20, POLYSACCHARID E [id number] CONJUGATE, ADJUVANT, PF 2022 IRINA IGLESIAS LEFT DELTO ID [id number] 216 complet ed [facility]MIN[facility] AT [facility] DIVISIO N ZOSTER RECOMBINANT 2 2021 187 complet ed [facility] N ZOSTER RECOMBINANT 1 2020 187 complet ed [facility] N COVID-19 ([employer]), MRNA, LNP-S, PF, 30 MCG/0.3 ML DOSE 2020 208 complet ed Booster for Series, [facility] N INFLUENZA, UNSPECIFIED FORMULATION 2020 88 complet ed [facility] N COVID-19 (PFIZER), MRNA, LNP-S, PF, 30 MCG/0.3 ML DOSE 2 2020 208 complet ed [facility] N COVID-19 ([employer]), MRNA, LNP-S, PF, 30 MCG/0.3 ML DOSE 1 2020 208 complet ed [facility] N PNEUMOCOCCAL POLYSACCHARID E [id number] 2017 33 complet ed [facility] N TDAP 2016 115 complet ed [facility] Results Combined list of recent chemistry, hematology and other laboratory results from Department of Defense and Veterans Affairs, ranging from 15 months to all on record, depending upon the facility. Order Name Results Value Reference Range Date Interpretation Specimen Comments Source [id number] HEMOGLOBIN A1C/HEMOGLO BIN.TOTAL IN BLOOD 5.4 4.0 - 6.0 10/05 Specimen Type: BLOOD No comment entered. Ordering Provider: OSMANI WALKER Report Released Date/Time: Oct 05, 2024 11:15 AM Reporting Lab: [facility] [place] [phone] Performing Lab: [facility] DIVISION CBC LEUKOCYTES [#/VOLUME] IN BLOOD BY AUTOMATED COUNT 7.3 10*3/u L 3.6 - 11.2 10/05 Specimen Type: BLOOD No comment entered. Ordering Provider: OSMANI WALKER Report Released Date/Time: Oct 05, 2024 11:15 AM Reporting Lab: [facility] [place] [address] Performing Lab: [facility] DIVISION CBC ERYTHROCYTE S [#/VOLUME] IN BLOOD BY AUTOMATED COUNT 4.88 10*6/u L 4.10 - 5.70 10/05 Specimen Type: BLOOD No comment entered. Ordering Provider: OSMANI WALKER Report Released Date/Time: Oct 05, 2024 11:15 AM Reporting Lab: [facility] [place] [address] Performing Lab: [facility] DIVISION CBC HEMOGLOBIN [MASS/VOLUM E] IN BLOOD 15.0 g/dL 13.1 - 16.8 10/05 Specimen Type: BLOOD No comment entered. Ordering Provider: OSMANI WALKER Report Released Date/Time: Oct 05, 2024 11:15 AM Reporting Lab: [facility] [place] [address] Performing Lab: [facility] DIVISION CBC HEMATOCRIT [VOLUME FRACTION] OF BLOOD 44.7 38.2 - 48.4 10/05 Specimen Type: BLOOD No comment entered. Ordering Provider: OSMANI WALKER Report Released Date/Time: Oct 05, 2024 11:15 AM Reporting Lab: [facility] [place] [address] Performing Lab: [facility] DIVISION CBC MCV [ENTITIC VOLUME] BY AUTOMATED COUNT 91.6 fL 80.0 - 100.0 10/05 Specimen Type: BLOOD No comment entered. Ordering Provider: OSMANI WALKER Report Released Date/Time: Oct 05, 2024 11:15 AM Reporting Lab: [facility] [place] [address] Performing Lab: [facility] DIVISION CBC MCH [ENTITIC MASS] BY AUTOMATED COUNT 30.7 pg 27.0 - 34.0 10/05 Specimen Type: BLOOD No comment entered. Ordering Provider: OSMANI WALKER Report Released Date/Time: Oct 05, 2024 11:15 AM Reporting Lab: [facility] [place] [address] Performing Lab: [facility] DIVISION CBC MCHC [MASS/VOLUM E] BY AUTOMATED COUNT 33.6 g/dL 33.0 - 36.0 10/05 Specimen Type: BLOOD No comment entered. Ordering Provider: OSMANI WALKER Report Released Date/Time: Oct 05, 2024 11:15 AM Reporting Lab: [facility] [place] [address] Performing Lab: [facility] DIVISION CBC PLATELETS [#/VOLUME] IN BLOOD BY AUTOMATED COUNT 223 10*3/u L 150 - 400 10/05 Specimen Type: BLOOD No comment entered. Ordering Provider: OSMANI WALKER Report Released Date/Time: Oct 05, 2024 11:15 AM Reporting Lab: [facility] [place] [address] Performing Lab: [facility] DIVISION CBC PLATELET MEAN VOLUME [ENTITIC VOLUME] IN BLOOD BY AUTOMATED COUNT 10.4 fL 7.5 - 11.2 10/05 Specimen Type: BLOOD No comment entered. Ordering Provider: OSMANI WALKER Report Released Date/Time: Oct 05, 2024 11:15 AM Reporting Lab: [facility] [place] [address] Performing Lab: [facility] DIVISION CBC ERYTHROCYTE DISTRIBUTIO N WIDTH [RATIO] BY AUTOMATED COUNT 13.3 11.8 - 15.1 10/05 Specimen Type: BLOOD No comment entered. Ordering Provider: OSMANI WALKER Report Released Date/Time: Oct 05, 2024 11:15 AM Reporting Lab: [facility] [place] [address] Performing Lab: [facility] DIVISION CBC LYMPHOCYTES /100 LEUKOCYTES IN BLOOD BY AUTOMATED COUNT 26 10/05 Specimen Type: BLOOD No comment entered. Ordering Provider: OSMANI WALKER Report Released Date/Time: Oct 05, 2024 11:15 AM Reporting Lab: [facility] [place] [address] Performing Lab: [facility] DIVISION CBC MONOCYTES/1 00 LEUKOCYTES IN BLOOD BY AUTOMATED COUNT 7 10/05 Specimen Type: BLOOD No comment entered. Ordering Provider: OSMANI WALKER Report Released Date/Time: Oct 05, 2024 11:15 AM Reporting Lab: [facility] [phone] Performing Lab: [facility] [phone] DIVISION CBC NEUTROPHILS /100 LEUKOCYTES IN BLOOD BY AUTOMATED COUNT 65 10/05 Specimen Type: BLOOD No comment entered. Ordering Provider: OSMANI WALKER Report Released Date/Time: Oct 05, 2024 11:15 AM Reporting Lab: [facility] [phone] Performing Lab: [facility] [phone] DIVISION CBC EOSINOPHILS /100 LEUKOCYTES IN BLOOD BY AUTOMATED COUNT 2 10/05 Specimen Type: BLOOD No comment entered. Ordering Provider: OSMANI WALKER Report Released Date/Time: Oct 05, 2024 11:15 AM Reporting Lab: [facility] [place] [address] Performing Lab: [facility] DIVISION CBC BASOPHILS/1 00 LEUKOCYTES IN BLOOD BY AUTOMATED COUNT 1 10/05 Specimen Type: BLOOD No comment entered. Ordering Provider: OSMANI WALKER Report Released Date/Time: Oct 05, 2024 11:15 AM Reporting Lab: [facility] [phone] Performing Lab: [facility] [phone] DIVISION CBC LYMPHOCYTES [#/VOLUME] IN BLOOD BY AUTOMATED COUNT 1.86 10*3/u L 0.77 - 4.50 10/05 Specimen Type: BLOOD No comment entered. Ordering Provider: OSMANI WALKER Report Released Date/Time: Oct 05, 2024 11:15 AM Reporting Lab: [facility] [place] [address] Performing Lab: [facility] [place] [phone] DIVISION CBC MONOCYTES [#/VOLUME] IN BLOOD BY AUTOMATED COUNT 0.51 10*3/u L 0.19 - 0.80 10/05 Specimen Type: BLOOD No comment entered. Ordering Provider: OSMANI WALKER Report Released Date/Time: Oct 05, 2024 11:15 AM Reporting Lab: [facility] [place] [address] Performing Lab: [facility] DIVISION CBC NEUTROPHILS [#/VOLUME] IN BLOOD BY AUTOMATED COUNT 4.72 10*3/u L 2.10 - 8.00 10/05 Specimen Type: BLOOD No comment entered. Ordering Provider: OSMANI WALKER Report Released Date/Time: Oct 05, 2024 11:15 AM Reporting Lab: [facility] [place] [address] Performing Lab: [facility] DIVISION CBC EOSINOPHILS [#/VOLUME] IN BLOOD BY AUTOMATED COUNT 0.14 10*3/u L 0.00 - 0.60 10/05 Specimen Type: BLOOD No comment entered. Ordering Provider: OSMANI WALKER Report Released Date/Time: Oct 05, 2024 11:15 AM Reporting Lab: [facility] [place] [address] Performing Lab: [facility] DIVISION CBC BASOPHILS [#/VOLUME] IN BLOOD BY AUTOMATED COUNT 0.05 10*3/u L 0.00 - 0.20 10/05 Specimen Type: BLOOD No comment entered. Ordering Provider: OSMANI WALKER Report Released Date/Time: Oct 05, 2024 11:15 AM Reporting Lab: [facility] [place] [address] Performing Lab: [facility] DIVISION LIPID PANEL (STL) CHOLESTEROL [MASS/VOLUM E] IN SERUM OR PLASMA 157 mg/dL 0 - 200 10/05 Specimen Type: PLASMA Comment: No hemolysis noted. Ordering Provider: OSMANI WALKER Report Released Date/Time: Oct 05, 2024 11:15 AM Reporting Lab: [facility] [place] [address] Performing Lab: [facility] DIVISION LIPID PANEL (STL) TRIGLYCERID E [MASS/VOLUM E] IN SERUM OR PLASMA 76 mg/dL 0 - 150 10/05 Specimen Type: PLASMA Comment: No hemolysis noted. Ordering Provider: OSMANI WALKER Report Released Date/Time: Oct 05, 2024 11:15 AM Reporting Lab: [facility] [place] [address] Performing Lab: [facility] DIVISION LIPID PANEL (STL) CHOLESTEROL IN LDL [MASS/VOLUM E] IN SERUM OR PLASMA BY CALCULATION 80 mg/dL 10/05 Specimen Type: PLASMA Comment: No hemolysis noted. Ordering Provider: OSMANI WALKER Report Released Date/Time: Oct 05, 2024 11:15 AM Reporting Lab: [facility] [place] [address] Performing Lab: [facility] DIVISION LIPID PANEL (STL) CHOLESTEROL IN HDL [MASS/VOLUM E] IN SERUM OR PLASMA 62 mg/dL 40 10/05 Specimen Type: PLASMA Comment: No hemolysis noted. Ordering Provider: OSMANI WALKER Report Released Date/Time: Oct 05, 2024 11:15 AM Reporting Lab: [facility] [place] [address] Performing Lab: [facility] DIVISION COMPREHENS MANAN METABOLIC PANEL CREATININE [MASS/VOLUM E] IN SERUM OR PLASMA 0.76 mg/dL 0.70 - 1.30 10/05 Specimen Type: PLASMA Comment: No hemolysis noted. Ordering Provider: OSMANI WALKER Report Released Date/Time: Oct 05, 2024 11:15 AM Reporting Lab: [facility] [place] [address] Performing Lab: [facility] DIVISION COMPREHENS MANAN METABOLIC PANEL UREA NITROGEN [MASS/VOLUM E] IN SERUM OR PLASMA 16.1 mg/dL 9.0 - 25.0 10/05 Specimen Type: PLASMA Comment: No hemolysis noted. Ordering Provider: OSMANI WALKER Report Released Date/Time: Oct 05, 2024 11:15 AM Reporting Lab: [facility] [place] [address] Performing Lab: [facility] DIVISION COMPREHENS MANAN METABOLIC PANEL GLUCOSE [MASS/VOLUM E] IN SERUM OR PLASMA 90 mg/dL 72 - 99 10/05 Specimen Type: PLASMA Comment: No hemolysis noted. Ordering Provider: OSMANI WALKER Report Released Date/Time: Oct 05, 2024 11:15 AM Reporting Lab: [facility] [place] [address] Performing Lab: [facility] DIVISION COMPREHENS MANAN METABOLIC PANEL SODIUM [MOLES/VOLU ME] IN SERUM OR PLASMA 139 meq/L 136 - 145 10/05 Specimen Type: PLASMA Comment: No hemolysis noted. Ordering Provider: OSMANI WALKER Report Released Date/Time: Oct 05, 2024 11:15 AM Reporting Lab: [facility] [place] [address] Performing Lab: [facility] DIVISION COMPREHENS MANAN METABOLIC PANEL POTASSIUM [MOLES/VOLU ME] IN SERUM OR PLASMA 4.2 meq/L 3.5 - 5.0 10/05 Specimen Type: PLASMA Comment: No hemolysis noted. Ordering Provider: OSMANI WALKER Report Released Date/Time: Oct 05, 2024 11:15 AM Reporting Lab: [facility] [place] [address] Performing Lab: [facility] DIVISION COMPREHENS MANAN METABOLIC PANEL CHLORIDE [MOLES/VOLU ME] IN SERUM OR PLASMA 103 meq/L 98 - 107 10/05 Specimen Type: PLASMA Comment: No hemolysis noted. Ordering Provider: OSMANI WALKER Report Released Date/Time: Oct 05, 2024 11:15 AM Reporting Lab: [facility] [place] [address] Performing Lab: [facility] DIVISION COMPREHENS MANAN METABOLIC PANEL CARBON DIOXIDE, TOTAL [MOLES/VOLU ME] IN SERUM OR PLASMA 26 meq/L 22 - 31 10/05 Specimen Type: PLASMA Comment: No hemolysis noted. Ordering Provider: OSMANI WALKER Report Released Date/Time: Oct 05, 2024 11:15 AM Reporting Lab: [facility] [place] [address] Performing Lab: [facility] DIVISION COMPREHENS MANAN METABOLIC PANEL CALCIUM [MASS/VOLUM E] IN SERUM OR PLASMA 9.7 mg/dL 8.4 - 10.4 10/05 Specimen Type: PLASMA Comment: No hemolysis noted. Ordering Provider: OSMANI WALKER Report Released Date/Time: Oct 05, 2024 11:15 AM Reporting Lab: [facility] [place] [address] Performing Lab: [facility] DIVISION COMPREHENS MANAN METABOLIC PANEL PROTEIN [MASS/VOLUM E] IN SERUM OR PLASMA 7.4 g/dL 6.0 - 8.6 10/05 Specimen Type: PLASMA Comment: No hemolysis noted. Ordering Provider: OSMANI WALKER Report Released Date/Time: Oct 05, 2024 11:15 AM Reporting Lab: [facility] [place] [address] Performing Lab: [facility] DIVISION COMPREHENS MANAN METABOLIC PANEL ALBUMIN [MASS/VOLUM E] IN SERUM OR PLASMA 4.4 g/dL 3.4 - 5.0 10/05 Specimen Type: PLASMA Comment: No hemolysis noted. Ordering Provider: OSMANI WALKER Report Released Date/Time: Oct 05, 2024 11:15 AM Reporting Lab: [facility] [place] [address] Performing Lab: [facility] DIVISION COMPREHENS MANAN METABOLIC PANEL BILIRUBIN.T OTAL [MASS/VOLUM E] IN SERUM OR PLASMA 0.8 mg/dL 0.2 - 1.2 10/05 Specimen Type: PLASMA Comment: No hemolysis noted. Ordering Provider: OSMANI WALKER Report Released Date/Time: Oct 05, 2024 11:15 AM Reporting Lab: [facility] [place] [phone] Performing Lab: [facility] DIVISION COMPREHENS MANAN METABOLIC PANEL ALKALINE PHOSPHATASE [ENZYMATIC ACTIVITY/VO LUME] IN SERUM OR PLASMA 86 U/L 40 - 150 10/05 Specimen Type: PLASMA Comment: No hemolysis noted. Ordering Provider: OSMANI WALKER Report Released Date/Time: Oct 05, 2024 11:15 AM Reporting Lab: [facility] [place] [address] Performing Lab: [facility] DIVISION COMPREHENS MANAN METABOLIC PANEL ASPARTATE AMINOTRANSF ERASE [ENZYMATIC ACTIVITY/VO LUME] IN SERUM OR PLASMA 30 U/L 5 - 34 10/05 Specimen Type: PLASMA Comment: No hemolysis noted. Ordering Provider: OSMANI WALKER Report Released Date/Time: Oct 05, 2024 11:15 AM Reporting Lab: [facility] [place] [address] Performing Lab: [facility] [place] [id number] DIVISION COMPREHENS MANAN METABOLIC PANEL ALANINE AMINOTRANSF ERASE [ENZYMATIC ACTIVITY/VO LUME] IN SERUM OR PLASMA 38 U/L 8 - 40 10/05 Specimen Type: PLASMA Comment: No hemolysis noted. Ordering Provider: OSMANI WALKER Report Released Date/Time: Oct 05, 2024 11:15 AM Reporting Lab: [facility] [place] [address] Performing Lab: [facility] [place] [id number] DIVISION COMPREHENS MANAN METABOLIC PANEL GLOMERULAR FILTRATION RATE/1.73 SQ M.PREDICTED [VOLUME RATE/AREA] IN SERUM, PLASMA OR BLOOD BY CREATININE- BASED FORMULA (CKD-EPI 2020) 92.00 60 10/05 Specimen Type: PLASMA Comment: No hemolysis noted. Ordering Provider: OSMANI WALKER Report Released Date/Time: Oct 05, 2024 11:15 AM Reporting Lab: [facility] [place] [address] Performing Lab: [facility] DIVISION TSH (MA-PB) THYROTROPIN [UNITS/VOLU ME] IN SERUM OR PLASMA 0.886 u[IU]/ mL 0.470 - 5.000 10/05 Specimen Type: SERUM No comment entered. Ordering Provider: OSMANI WALKER Report Released Date/Time: Oct 05, 2024 11:15 AM Reporting Lab: [facility] [place] [address] Performing Lab: [facility] DIVISION HGA1C HEMOGLOBIN A1C/HEMOGLO BIN.TOTAL IN BLOOD 6.7 4.0 - 6.0 10/10 H Specimen Type: BLOOD No comment entered. Ordering Provider: OSMANI WALKER Report Released Date/Time: Oct 11, 2023 11:27 AM Reporting Lab: [facility] [place] [address] Performing Lab: [facility] DIVISION CBC LEUKOCYTES [#/VOLUME] IN BLOOD BY AUTOMATED COUNT 7.2 10*3/u L 3.6 - 11.2 10/10 Specimen Type: BLOOD No comment entered. Ordering Provider: OSMANI WALKER Report Released Date/Time: Oct 11, 2023 11:27 AM Reporting Lab: [facility] [place] [address] Performing Lab: [facility] [id number] DIVISION CBC ERYTHROCYTE S [#/VOLUME] IN BLOOD BY AUTOMATED COUNT 4.93 10*6/u L 4.10 - 5.70 10/10 Specimen Type: BLOOD No comment entered. Ordering Provider: OSMANI WALKER Report Released Date/Time: Oct 11, 2023 11:27 AM Reporting Lab: [facility] [place] [address] Performing Lab: [facility] CBC HEMOGLOBIN [MASS/VOLUM E] IN BLOOD 14.6 g/dL 13.1 - 16.8 10/10 Specimen Type: BLOOD No comment entered. Ordering Provider: OSMANI WALKER Report Released Date/Time: Oct 11, 2023 11:27 AM Reporting Lab: [facility] [place] [address] Performing Lab: [facility] CBC HEMATOCRIT [VOLUME FRACTION] OF BLOOD 43.0 38.2 - 48.4 10/10 Specimen Type: BLOOD No comment entered. Ordering Provider: OSMANI WALKER Report Released Date/Time: Oct 11, 2023 11:27 AM Reporting Lab: [facility] [place] [address] Performing Lab: [facility] CBC MCV [ENTITIC VOLUME] BY AUTOMATED COUNT 87.2 fL 80.0 - 100.0 10/10 Specimen Type: BLOOD No comment entered. Ordering Provider: OSMANI WALKER Report Released Date/Time: Oct 11, 2023 11:27 AM Reporting Lab: [facility] [place] [address] Performing Lab: [facility] [phone] DIVISION CBC MCH [ENTITIC MASS] BY AUTOMATED COUNT 29.6 pg 27.0 - 34.0 10/10 Specimen Type: BLOOD No comment entered. Ordering Provider: OSMANI WALKER Report Released Date/Time: Oct 11, 2023 11:27 AM Reporting Lab: [facility] [place] [address] Performing Lab: [facility] DIVISION CBC MCHC [MASS/VOLUM E] BY AUTOMATED COUNT 34.0 g/dL 33.0 - 36.0 10/10 Specimen Type: BLOOD No comment entered. Ordering Provider: OSMANI WALKER Report Released Date/Time: Oct 11, 2023 11:27 AM Reporting Lab: [facility] [place] [address] Performing Lab: [facility] DIVISION CBC PLATELETS [#/VOLUME] IN BLOOD BY AUTOMATED COUNT 224 10*3/u L 150 - 400 10/10 Specimen Type: BLOOD No comment entered. Ordering Provider: OSMANI WALKER Report Released Date/Time: Oct 11, 2023 11:27 AM Reporting Lab: [facility] [place] [address] Performing Lab: [facility] DIVISION CBC PLATELET MEAN VOLUME [ENTITIC VOLUME] IN BLOOD BY AUTOMATED COUNT 10.2 fL 7.5 - 11.2 10/10 Specimen Type: BLOOD No comment entered. Ordering Provider: OSMANI WALKER Report Released Date/Time: Oct 11, 2023 11:27 AM Reporting Lab: [facility] [address] Performing Lab: [facility]1 [facility] [phone] DIVISION CBC ERYTHROCYTE DISTRIBUTIO N WIDTH [RATIO] BY AUTOMATED COUNT 13.1 11.8 - 15.1 10/10 Specimen Type: BLOOD No comment entered. Ordering Provider: OSMANI WALKER Report Released Date/Time: Oct 11, 2023 11:27 AM Reporting Lab: [facility] [address] Performing Lab: [facility] DIVISION CBC LYMPHOCYTES /100 LEUKOCYTES IN BLOOD BY AUTOMATED COUNT 22 10/10 Specimen Type: BLOOD No comment entered. Ordering Provider: OSMANI WALKER Report Released Date/Time: Oct 11, 2023 11:27 AM Reporting Lab: [facility] [address] Performing Lab: [facility] [id number] [place] [address] DIVISION CBC MONOCYTES/1 00 LEUKOCYTES IN BLOOD BY AUTOMATED COUNT 8 10/10 Specimen Type: BLOOD No comment entered. Ordering Provider: OSMANI WALKER Report Released Date/Time: Oct 11, 2023 11:27 AM Reporting Lab: [facility] [address] Performing Lab: [facility] [phone] DIVISION CBC NEUTROPHILS /100 LEUKOCYTES IN BLOOD BY AUTOMATED COUNT 66 10/10 Specimen Type: BLOOD No comment entered. Ordering Provider: OSMANI WALKER Report Released Date/Time: Oct 11, 2023 11:27 AM Reporting Lab: [facility] [address] Performing Lab: [facility]1 [facility] [phone] DIVISION CBC EOSINOPHILS /100 LEUKOCYTES IN BLOOD BY AUTOMATED COUNT 4 10/10 Specimen Type: BLOOD No comment entered. Ordering Provider: OSMANI WALKER Report Released Date/Time: Oct 11, 2023 11:27 AM Reporting Lab: [facility] [place] [address] Performing Lab: [facility] DIVISION CBC BASOPHILS/1 00 LEUKOCYTES IN BLOOD BY AUTOMATED COUNT 1 10/10 Specimen Type: BLOOD No comment entered. Ordering Provider: OSMANI WALKER Report Released Date/Time: Oct 11, 2023 11:27 AM Reporting Lab: [facility] [place] [address] Performing Lab: [facility] DIVISION CBC LYMPHOCYTES [#/VOLUME] IN BLOOD BY AUTOMATED COUNT 1.56 10*3/u L 0.77 - 4.50 10/10 Specimen Type: BLOOD No comment entered. Ordering Provider: OSMANI WALKER Report Released Date/Time: Oct 11, 2023 11:27 AM Reporting Lab: [facility] [place] [address] Performing Lab: [facility] DIVISION CBC MONOCYTES [#/VOLUME] IN BLOOD BY AUTOMATED COUNT 0.57 10*3/u L 0.19 - 0.80 10/10 Specimen Type: BLOOD No comment entered. Ordering Provider: OSMANI WALKER Report Released Date/Time: Oct 11, 2023 11:27 AM Reporting Lab: [facility] [place] [address] Performing Lab: [id number] DIVISION CBC NEUTROPHILS [#/VOLUME] IN BLOOD BY AUTOMATED COUNT 4.69 10*3/u L 2.10 - 8.00 10/10 Specimen Type: BLOOD No comment entered. Ordering Provider: OSMANI WALKER Report Released Date/Time: Oct 11, 2023 11:27 AM Reporting Lab: [facility] [place] [address] Performing Lab: [facility] DIVISION CBC EOSINOPHILS [#/VOLUME] IN BLOOD BY AUTOMATED COUNT 0.27 10*3/u L 0.00 - 0.60 10/10 Specimen Type: BLOOD No comment entered. Ordering Provider: OSMANI WALKER Report Released Date/Time: Oct 11, 2023 11:27 AM Reporting Lab: [facility] [place] [address] Performing Lab: [facility] DIVISION CBC BASOPHILS [#/VOLUME] IN BLOOD BY AUTOMATED COUNT 0.05 10*3/u L 0.00 - 0.20 10/10 Specimen Type: BLOOD No comment entered. Ordering Provider: OSMANI WALKER Report Released Date/Time: Oct 11, 2023 11:27 AM Reporting Lab: [facility] [place] [address] Performing Lab: [facility] DIVISION COMPREHENS MANAN METABOLIC PANEL CREATININE [MASS/VOLUM E] IN SERUM OR PLASMA 0.80 mg/dL 0.70 - 1.30 10/10 Specimen Type: PLASMA Comment: No hemolysis noted. Ordering Provider: OSMANI WALKER Report Released Date/Time: Oct 11, 2023 11:27 AM Reporting Lab: [facility] [address] Performing Lab: [facility]1 [facility] [phone] DIVISION COMPREHENS MANAN METABOLIC PANEL UREA NITROGEN [MASS/VOLUM E] IN SERUM OR PLASMA 20.5 mg/dL 9.0 - 25.0 10/10 Specimen Type: PLASMA Comment: No hemolysis noted. Ordering Provider: OSMANI WALKER Report Released Date/Time: Oct 11, 2023 11:27 AM Reporting Lab: [facility]1 [place] [phone] Performing Lab: [facility] [place] [id number] DIVISION COMPREHENS MANAN METABOLIC PANEL GLUCOSE [MASS/VOLUM E] IN SERUM OR PLASMA 110 mg/dL 72 - 99 10/10 H Specimen Type: PLASMA Comment: No hemolysis noted. Ordering Provider: OSMANI WALKER Report Released Date/Time: Oct 11, 2023 11:27 AM Reporting Lab: [facility] [place] [address] Performing Lab: [facility] DIVISION COMPREHENS MANAN METABOLIC PANEL SODIUM [MOLES/VOLU ME] IN SERUM OR PLASMA 142 meq/L 136 - 145 10/10 Specimen Type: PLASMA Comment: No hemolysis noted. Ordering Provider: OSMANI WALKER Report Released Date/Time: Oct 11, 2023 11:27 AM Reporting Lab: [facility]1 [place] [address] Performing Lab: [facility] DIVISION COMPREHENS MANAN METABOLIC PANEL POTASSIUM [MOLES/VOLU ME] IN SERUM OR PLASMA 4.1 meq/L 3.5 - 5.0 10/10 Specimen Type: PLASMA Comment: No hemolysis noted. Ordering Provider: OSMANI WALKER Report Released Date/Time: Oct 11, 2023 11:27 AM Reporting Lab: [facility] [place] [address] Performing Lab: [facility] DIVISION COMPREHENS MANAN METABOLIC PANEL CHLORIDE [MOLES/VOLU ME] IN SERUM OR PLASMA 105 meq/L 98 - 107 10/10 Specimen Type: PLASMA Comment: No hemolysis noted. Ordering Provider: OSMANI WALKER Report Released Date/Time: Oct 11, 2023 11:27 AM Reporting Lab: [facility] [place] [address] Performing Lab: [facility] DIVISION COMPREHENS MANAN METABOLIC PANEL CARBON DIOXIDE, TOTAL [MOLES/VOLU ME] IN SERUM OR PLASMA 25 meq/L 22 - 31 10/10 Specimen Type: PLASMA Comment: No hemolysis noted. Ordering Provider: OSMANI WALKER Report Released Date/Time: Oct 11, 2023 11:27 AM Reporting Lab: [facility] [place] [address] Performing Lab: [facility] DIVISION COMPREHENS MANAN METABOLIC PANEL CALCIUM [MASS/VOLUM E] IN SERUM OR PLASMA 9.4 mg/dL 8.4 - 10.4 10/10 Specimen Type: PLASMA Comment: No hemolysis noted. Ordering Provider: OSMANI WALKER Report Released Date/Time: Oct 11, 2023 11:27 AM Reporting Lab: [facility] [place] [address] Performing Lab: [facility] DIVISION COMPREHENS MANAN METABOLIC PANEL PROTEIN [MASS/VOLUM E] IN SERUM OR PLASMA 7.2 g/dL 6.0 - 8.6 10/10 Specimen Type: PLASMA Comment: No hemolysis noted. Ordering Provider: OSMANI WALKER Report Released Date/Time: Oct 11, 2023 11:27 AM Reporting Lab: [facility] [place] [address] Performing Lab: [facility] DIVISION COMPREHENS MANAN METABOLIC PANEL ALBUMIN [MASS/VOLUM E] IN SERUM OR PLASMA 4.4 g/dL 3.4 - 5.0 10/10 Specimen Type: PLASMA Comment: No hemolysis noted. Ordering Provider: OSMANI WALKER Report Released Date/Time: Oct 11, 2023 11:27 AM Reporting Lab: [facility] [place] [address] Performing Lab: [facility] DIVISION COMPREHENS MANAN METABOLIC PANEL BILIRUBIN.T OTAL [MASS/VOLUM E] IN SERUM OR PLASMA 0.4 mg/dL 0.2 - 1.2 10/10 Specimen Type: PLASMA Comment: No hemolysis noted. Ordering Provider: OSMANI WALKER Report Released Date/Time: Oct 11, 2023 11:27 AM Reporting Lab: [facility] [place] [address] Performing Lab: [facility] DIVISION COMPREHENS MANAN METABOLIC PANEL ALKALINE PHOSPHATASE [ENZYMATIC ACTIVITY/VO LUME] IN SERUM OR PLASMA 63 U/L 40 - 150 10/10 Specimen Type: PLASMA Comment: No hemolysis noted. Ordering Provider: OSMANI WALKER Report Released Date/Time: Oct 11, 2023 11:27 AM Reporting Lab: [facility] [place] [address] Performing Lab: [facility]1 [facility] [phone] [place] [address] DIVISION COMPREHENS MANAN METABOLIC PANEL ASPARTATE AMINOTRANSF ERASE [ENZYMATIC ACTIVITY/VO LUME] IN SERUM OR PLASMA 19 U/L 5 - 34 10/10 Specimen Type: PLASMA Comment: No hemolysis noted. Ordering Provider: OSMANI WALKER Report Released Date/Time: Oct 11, 2023 11:27 AM Reporting Lab: [facility] [address] Performing Lab: [facility] [phone] [place] [address] DIVISION COMPREHENS MANAN METABOLIC PANEL ALANINE AMINOTRANSF ERASE [ENZYMATIC ACTIVITY/VO LUME] IN SERUM OR PLASMA 23 U/L 8 - 40 10/10 Specimen Type: PLASMA Comment: No hemolysis noted. Ordering Provider: OSMANI WALKER Report Released Date/Time: Oct 11, 2023 11:27 AM Reporting Lab: [facility] [address] Performing Lab: [facility]1 [facility] [phone] DIVISION COMPREHENS MANAN METABOLIC PANEL GLOMERULAR FILTRATION RATE/1.73 SQ M.PREDICTED [VOLUME RATE/AREA] IN SERUM, PLASMA OR BLOOD BY CREATININE- BASED FORMULA (CKD-EPI 2020) 91.15 60 10/10 Specimen Type: PLASMA Comment: No hemolysis noted. Ordering Provider: OSMANI WALKER Report Released Date/Time: Oct 11, 2023 11:27 AM Reporting Lab: [facility] [address] Performing Lab: [facility]1 [facility] [phone] DIVISION LIPID PANEL (STL) CHOLESTEROL [MASS/VOLUM E] IN SERUM OR PLASMA 170 mg/dL 0 - 200 10/10 Specimen Type: PLASMA Comment: No hemolysis noted. Ordering Provider: OSMANI WALKER Report Released Date/Time: Oct 11, 2023 11:27 AM Reporting Lab: [facility] [place] [address] Performing Lab: [facility] LIPID PANEL (STL) TRIGLYCERID E [MASS/VOLUM E] IN SERUM OR PLASMA 179 mg/dL 0 - 150 10/10 H Specimen Type: PLASMA Comment: No hemolysis noted. Ordering Provider: OSMANI WALKER Report Released Date/Time: Oct 11, 2023 11:27 AM Reporting Lab: [facility] [place] [address] Performing Lab: [facility] LIPID PANEL (STL) CHOLESTEROL IN LDL [MASS/VOLUM E] IN SERUM OR PLASMA BY CALCULATION 77 mg/dL 10/10 Specimen Type: PLASMA Comment: No hemolysis noted. Ordering Provider: OSMANI WALKER Report Released Date/Time: Oct 11, 2023 11:27 AM Reporting Lab: [facility] [place] [address] Performing Lab: [facility] LIPID PANEL (STL) CHOLESTEROL IN HDL [MASS/VOLUM E] IN SERUM OR PLASMA 57 mg/dL 40 10/10 Specimen Type: PLASMA Comment: No hemolysis noted. Ordering Provider: OSMANI WALKER Report Released Date/Time: Oct 11, 2023 11:27 AM Reporting Lab: [facility] [place] [address] Performing Lab: [facility] DIVISION TSH (MA-PB) THYROTROPIN [UNITS/VOLU ME] IN SERUM OR PLASMA 1.273 u[IU]/ mL 0.470 - 5.000 10/10 Specimen Type: SERUM No comment entered. 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 Vital Sign Value Date Comments Source SYSTOLIC BLOOD PRESSURE 137 10/05/2024 10:47:11 [facility] DIASTOLIC BLOOD PRESSURE 65 10/05/2024 10:47:11 [facility] PULSE OXIMETRY 99 10/05/2024 10:47:11 [facility] DIVISION WEIGHT 182 10/05/2024 10:47:11 [facility] BMI 26 kg/m2 10/05/2024 10:47:11 [facility] DIVISION PAIN 8 10/05/2024 10:47:11 [facility] DIVISION HEIGHT 70 10/05/2024 10:47:11 [facility] TEMPERATURE 97.7 10/05/2024 10:47:11 [facility] DIV[facility] PULSE 65 10/05/2024 10:47:11 [facility] DIVISION RESPIRATION 16 10/05/2024 10:47:11 [facility] WEIGHT 189.1 06/25/2024 15:06:53 [facility] BMI 27 kg/m2 06/25/2024 15:06:53 [facility] SYSTOLIC BLOOD PRESSURE 146 10/11/2023 10:41:22 [facility] DIASTOLIC BLOOD PRESSURE 74 10/11/2023 10:41:22 [facility] PULSE OXIMETRY 96 10/11/2023 10:41:22 [facility] WEIGHT 237 10/11/2023 10:41:22 [facility] BMI 34 kg/m2 10/11/2023 10:41:22 [facility] PAIN 0 10/11/2023 10:41:22 [facility] HEIGHT 70 10/11/2023 10:41:22 [facility] TEMPERATURE 98.1 10/11/2023 10:41:22 [facility] PULSE 69 10/11/2023 10:41:22 [facility] RESPIRATION 18 10/11/2023 10:41:22 [facility] Encounters Combined list of: 1) Encounters from Department of [facility] facilities going backup to the last 18 months, not all [place] inpatient encounters are included; 2) Encounters from the Department of [facility] facilities going backup to 280 months. Location Location Details Encounter Type Encounter Number Reason For Visit Attending Provider ADM Date DC Date Status Disposition Source [facility] OFF/OP EST OCTOBER X REQ PHY/QHP [id number] Diagnos is: ICD-10- CM E11.9 Type 2 diabete s mellitu s without complic ations ANNE MARIE KIRKPATRICK 06/24 [facility] Outpatient Encounter [id number] 07/01 [facility] OFFICE O/P NEW MOD 45 MIN [id number] Diagnos is: ICD-10- CM E11.9 Type 2 diabete s mellitu s without complic ations Jayro FITCH 07/29 [facility] INTRM OPH EXAM EST PATIENT [id number] Diagnos is: ICD-10- CM H26.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, right eye RIDDERING, ALIXANDRA L 08/31 [facility] Outpatient Encounter [id number] 08/31 [facility] Outpatient Encounter [id number] ANGELICA HAMLIN 10/03 [facility] DIV[facility] OFFICE O/P EST MOD 30 MIN [id number] Diagnos is: ICD-10- CM F43.12 Post-tr aumatic stress disorde r, chronic DENISE,ANE ANNE MARIE 10/10 [facility] OFFICE O/P EST MOD 30 MIN [id number] Diagnos is: ICD-10- CM E11.9 Type 2 diabete s mellitu s without complic ations BERNARDBETHANY RUBIO THI 10/10 [facility] Outpatient Encounter [id number] 03/13 [facility] OFF/OP EST MAY X REQ PHY/QHP [id number] Diagnos is: ICD-10- CM E11.9 Type 2 diabete s mellitu s without complic ations ANNE MARIE KIRKPATRICK 06/25 [facility] Outpatient Encounter [id number] ANGELICA HALMIN 09/28 [facility] OFFICE O/P EST MOD 30 MIN [id number] Diagnos is: ICD-10- CM I10 Essenti al (primar y) hyperte nsion OSMANI WALKER ANNE MARIE 10/05 [facility] PSYTX CRISIS INITIAL 60 MIN [id number] Diagnos is: ICD-10- CM F43.9 Reactio n to severe stress, unspeci MALOU Castillo C 10/05 [facility] Outpatient Encounter [id number] BOAZ SNOW 10/09 [facility] Social History Combined list of available smoking, tobacco, and other social history from Department of Defense and [facility] facilities. Social History Type Response Date Comment Sourc e Tobacco smoking status NHIS VA-TOBACCO NEVER USED OTHER TYPE 10/05/2024 [facility] History of tobacco use PR-TOBACCO USE FORMER CIGARETTES 10/05/2024 [facility] History of tobacco use PR-TOBACCO FORMER USER 10/11/2023 [facility] History of tobacco use PR-TOBACCO FORMER USER 10/01/2022 [facility] History of tobacco use VA-TOBACCO FORMER USER 04/02/2021 [facility] Plan of Care List of future care activities from Department [facility] Affairs facilities. Additional future care activities may be listed in the Assessment and Plan section. Date/Time Care Activity Care Activity Detail Facili ty 10/16/2024 AMBULATORY - SURGERY AMBULATORY - SURGERY [facility]
== END 2024-10-11 08:37 | disposition home or self-care (01) ==
PROVIDERS: PCP Family Medicine; Visit Provider Family Medicine
DX: M25.512 Pain in left shoulder (principal); M19.041 Primary osteoarthritis, right hand
CPT/HCPCS: 73030; 73130

== ENCOUNTER 2025-05-20 10:12 | Outpatient (CLI) | payer MEDICARE, SELFPAY ==
[2025-05-20 10:32] LABS: Hematocrit 44.5 % (42.0-52.0); Hemoglobin 14.8 g/dL (14.0-18.0); Immature Granulocyte Percent A 0.2 % (0-0.5); Lymphocytes Absolute Auto 1.36 K/mm3 (0.9-3.2); Mean Corpuscular HGB Conc 33.3 g/dl (32-36); Mean Corpuscular Hemoglobin 30.3 pg (26-34); Mean Corpuscular Volume 91.0 fl (80-100); Nucleated Red Blood Cells Absolute Auto 0.000 K/mm3 (0.0-0.012); Nucleated Red Blood Cells Perc 0.0 % (0.0-0.2); Platelet Count Result 184 k/mm3 (150-375); Red Blood Count 4.89 M/mm3 (4.6-6.20); White Blood Count 8.3 K/mm3 (4.5-10.0)
[2025-05-20 10:54] LABS: Alanine Aminotransferase 26 U/L (6-50); Albumin Level 4.4 g/dL (3.5-5.1); Alkaline Phosphatase 74 U/L (38-126); Anion Gap 3 mmol/L (4-12); Aspartate Amino Transferase 27 U/L (17-59); Bilirubin,Total 0.7 mg/dL (0.2-1.3); Blood Urea Nitrogen 14 mg/dL (9-20); Calcium 9.3 mg/dL (8.4-10.2); Carbon Dioxide 31 mmol/L (22-30); Chloride 100 mmol/L (98-107); Estimated Glomerular Filt Rate > 60; Glucose 97 mg/dL (65-110); Potassium 3.9 mmol/L (3.4-5.0); Sodium 134 mmol/L (137-145); Total Protein 7.4 g/dL (6.3-8.2)
[2025-05-20 12:04] LABS: Vitamin B12 575.0 pg/mL (239-931)
== END 2025-05-20 10:13 | disposition home or self-care (01) ==
PROVIDERS: PCP Family Medicine; Visit Provider Family Medicine
DX: F43.10 Post-traumatic stress disorder, unspecified (principal); E11.9 Type 2 diabetes mellitus without complications; Z00.00 Encounter for general adult medical examination without abnormal findings; K21.9 Gastro-esophageal reflux disease without esophagitis; E78.49 Other hyperlipidemia; I71.9 Aortic aneurysm of unspecified site, without rupture; Z87.891 Personal history of nicotine dependence; E55.9 Vitamin D deficiency, unspecified
CPT/HCPCS: 36415; 80053; 82306; 82607; 82746; 85025